=== PATIENT | male | born 1945 | race Caucasian/White ===

== ENCOUNTER 2020-01-17 11:25 | Emergency (ER) | payer OTHER, SELFPAY ==
[2020-01-17] VITALS (7 sets, daily range): BP systolic 112–151; BP diastolic 67–84; PULSE 70–77; RESP 16–18; TEMP 36.8; O2SAT 95–96; BMI 22.8
--- NOTE | 2020-01-17 11:28 | ED_ITS ---
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 ^ days later the pt started having night sweats and feeling like he has a high fever at night. Slight cough only wh en he takes s deep breath. Today he had left chest pain and it lasted 20 min and it scared him so he called 911. In ambulance his o2 was at 94% MD elicited complaint: shortness of breath, cough and chest pain Onset (ago): day(s) Context: recent illness Timing: constant and progressively worsening Severity: moderate Exacerbating factors: deep breaths Relieving factors: nothing Associated symptoms: Reports chest pain, cough, diaphoresis and fever(s); Deny abdominal pain, nausea or vomiting Treatment prior to arrival: oxygen Review of Systems General: Reports: 10 or more systems reviewed and unremarkable except in HPI and below Const: Reports: fever and diaphoresis ENMT: Denies: throat pain Card: Reports: chest pain Resp: Reports: shortness of breath and productive cough; Denies: wheezing GI: Denies: abdominal pain, nausea, vomiting, diarrhea, constipation or blood in stool Musc: Denies: back pain or extremity swelling Skin/Breast: Denies: rash Neuro: Denies: headache, numbness in extremities or weakness in extremities Endo: Reports: excessive sweating (at night) [facility] ED PFSH: Medical History (Updated 01/17/20 @ 17:07 by Aida Marie DO) Dyslipidemia Hypertension Hypothyroidism Social History Smoking and tobacco status: former smoker Physical Exam Const: COMMON NORMALS: no apparent distress and oriented x3 GENERAL APPEARANCE: cooperative; not in distress HENMT: COMMON NORMALS: normocephalic HEAD & SCALP: normal to inspection and normocephalic MOUTH: oral and palatal mucosa normal and lip normal THROAT: posterior oropharynx normal and tonsils normal Neck/C-Spine: COMMON NORMALS: full ROM, no lymphadenopathy, supple and no meningeal signs GENERAL: Yes normal visual inspection and Yes trachea midline Chest: COMMONS NORMALS: inspection of chest normal Resp: COMMON NORMALS: normal respiratory effort and clear to auscultation bilaterally EFFORT & INSPECTION: Yes able to speak in complete sentences and No respiratory distress AUSCULTATION: clear to auscultation bilaterally, no rales, no rhonchi and no wheezes Cardio: COMMON NORMALS: regular rate, regular rhythm, S1 normal heart sound, S2 normal heart sound and no murmurs RATE: regular rate RHYTHM: regular rhythm HEART SOUNDS: S1 normal and S2 normal PERIPHERAL PULSES: radial pulses present and dorsalis pedis pulses present GI: COMMON NORMALS: normal to inspection, nondistended, normoactive bowel sounds, soft to palpation and non-tender INSPECTION: Yes normal to inspection AUSCULTATION: Yes normoactive bowel sounds PALPATION: Yes soft, No tender, No guarding and No rigid RECTAL EXAM: Yes deferred : COMMON NORMALS: Yes no CVA tenderness BLADDER/KIDNEY EXAM: Yes no CVA tenderness Back/Pelvis: COMMON NORMALS: no CVA tenderness Extremity: COMMON NORMALS: normal to inspection, full ROM, normal capillary refill, no calf tenderness and no pedal edema Neuro: COMMON NORMALS: oriented x3, CN's II-XII intact bilaterally, moves all extremities and no focal motor deficits MENINGEAL SIGNS: Yes no meningeal signs Skin: COMMON NORMALS: no rashes or lesions noted GENERAL SKIN EXAM: no rashes or lesions noted Course Vital Signs: Vital signs: Vital Signs Temperature 98.2 F 01/17/20 11:26 Pulse Rate 70 01/17/20 18:04 Respiratory Rate 16 01/17/20 18:16 Blood Pressure 134/71 01/17/20 18:04 Pulse Oximetry 96 01/17/20 18:16 MDM - SOB/Dyspnea MDM Narrative: Medical decision making narrative: Pts troponin went from 8 to 47 in 2 hours. Pts heart score is a 5. Dr Gore states since we do not have stress test available this weekend he would like me to wait for a 6 hour troponin, unless cardiology wants him admitted now. Dr Maravilla states to wait for 6 hour trop if it goes up to 56-57 then send him home. Dr Gore is coming to see the pt. He states it is common for it to go up in covid but if it goes up to over 200 then it is more likely cardiac,. 1530: lab reran the 2nd trop and it is actually 7.5 and I have informed Dr Gore and he states he will finish his consult but it is ok to send him home. He will need to self isolate for 12 days and he will need to f/u with outpt stress test. Case management will get him set up with outpt stress, We will give him the info for getting his covid results. He will need to drink plenty of fluids and I will send him home with levaquin for possible bronchitis D dimer is neg I will d/c with Bao's blessing Lab Data: Attestation: I reviewed the patient's lab results. Labs: Lab Results 01/17/20 01/17/20 01/17/20 Range/Units 12:05 12:15 12:15 WBC 4.1 (4.0-10.0) 10^3/ uL RBC 4.80 (4.1-5.3) 10^6/u L Hgb 13.3 (11.7-16.6) g/dL Hct 40.4 L (42.0-52.0) % MCV 84.2 (80-94) fL MCH 27.7 L (28.0-34.0) pg MCHC 32.9 (30.0-36.0) g/dL RDW 13.5 (12.1-15.1) % Plt Count 135 (130-400) 10^3/c mm MPV 12.3 H (7.4-10.4) fL Neut % (Auto) 66.3 % Lymph % (Auto) 16.3 % [place] % (Auto) 16.0 % Eos % (Auto) 0.2 % Baso % (Auto) 0.2 % Neut # (Auto) 2.7 (1.8-7.7) 10^3/u L Lymph # (Auto) 0.7 L (0.8-4.8) 10^3/u L [place] # (Auto) 0.7 (0.2-0.9) 10^3/u L Eos # (Auto) 0.0 (0.0-0.8) 10^3/u L Baso # (Auto) 0.0 (0.0-0.1) 10^3/u L Nucleated RBC % (a uto) 0 % Nucleated RBCs # 0.0 /100WBC D-Dimer (0-0.59) ug/mIFE U Specimen Type Arterial ABG pH 7.46 H (7.35-7.45) ABG pCO2 29.3 L (35-45) mmHg ABG pO2 84.1 (80.0-100.0) mmH g ABG HCO3 20.8 L (22-26) mmol/L ABG O2 Saturation 96.9 ABG Base Excess -1.9 (-2.0-2.0) mmol/ L John Test Pos A-a O2 Gradient 27.5 H (5-10) mmHg Hematocrit 42.7 (42-52) % Hgb O2 Saturation 95.9 (95-100) % Carboxyhemoglobin 0.1 L (0.4-20.1) %THgb Methemoglobin 0.9 (0.4-1.5) % Total Hemoglobin 13.9 L (14-18) g/dL Sodium 136.0 135 L (131-143) mmol/L Potassium 3.3 L 3.3 L (3.5-5.0) mmol/L Glucose 91.0 92 (70-115) mg/dL Ionized Calcium 1.1 (1.1-1.4) mmol/L Chief Passenger Ship Steward/Stewardess ID anonymous Chloride 99 (98-107) mmol/L Carbon Dioxide 20 L (22-29) mmol/L Anion Gap 19.3 H (5-19) BUN 12 (8-23) mg/dL Creatinine 1.0 (0.7-1.2) mg/dL Calculated Osmolal ity 276 L (285-295) mOsm/k g Lactate (0.5-2.2) mmol/L Calcium 8.4 L (8.5-10.5) mg/dL Total Bilirubin 0.2 (0.15-1.2) mg/dL AST 25 (0-40) U/L ALT 19 (0-41) U/L Alkaline Phosphata se 57 (40-130) IU/L Lactate Dehydrogen ase (135-225) U/L Troponin T Baselin e (0-15) ng/mL Troponin T 120 Min mentasta (0-15) ng/mL Delta Troponin T (0-10) ABS# Total Protein 6.7 (6.6-8.7) g/dL Albumin 3.7 (3.5-5.2) g/dL Globulin 3.0 (1.3-4.6) g/dL Triglycerides (0-150) mg/dL Cholesterol (0-200) mg/dL LDL Cholesterol, C alc (50-129) mg/dL Total VLDL Cholest natividad (0-30) mg/dL HDL Cholesterol (60-100) mg/dL Cholesterol/HDL Ra smita (1.0-5.00) mg/dL Influenza Type A A g (Negative) Influenza Type B A g (Negative) 01/17/20 01/17/20 01/17/20 Range/Units 12:15 12:15 12:15 WBC (4.0-10.0) 10^3/ uL RBC (4.1-5.3) 10^6/u L Hgb (11.7-16.6) g/dL Hct (42.0-52.0) % MCV (80-94) fL MCH (28.0-34.0) pg MCHC (30.0-36.0) g/dL RDW (12.1-15.1) % Plt Count (130-400) 10^3/c mm MPV (7.4-10.4) fL Neut % (Auto) % Lymph % (Auto) % [place] % (Auto) % Eos % (Auto) % Baso % (Auto) % Neut # (Auto) (1.8-7.7) 10^3/u L Lymph # (Auto) (0.8-4.8) 10^3/u L [place] # (Auto) (0.2-0.9) 10^3/u L Eos # (Auto) (0.0-0.8) 10^3/u L Baso # (Auto) (0.0-0.1) 10^3/u L Nucleated RBC % (a uto) % Nucleated RBCs # /100WBC D-Dimer (0-0.59) ug/mIFE U Specimen Type ABG pH (7.35-7.45) ABG pCO2 (35-45) mmHg ABG pO2 (80.0-100.0) mmH g ABG HCO3 (22-26) mmol/L ABG O2 Saturation ABG Base Excess (-2.0-2.0) mmol/ L John Test A-a O2 Gradient (5-10) mmHg Hematocrit (42-52) % Hgb O2 Saturation (95-100) % Carboxyhemoglobin (0.4-20.1) %THgb Methemoglobin (0.4-1.5) % Total Hemoglobin (14-18) g/dL Sodium (131-143) mmol/L Potassium (3.5-5.0) mmol/L Glucose (70-115) mg/dL Ionized Calcium (1.1-1.4) mmol/L Chief Passenger Ship Steward/Stewardess ID Chloride (98-107) mmol/L Carbon Dioxide (22-29) mmol/L Anion Gap (5-19) BUN (8-23) mg/dL Creatinine (0.7-1.2) mg/dL Calculated Osmolal ity (285-295) mOsm/k g Lactate 0.7 (0.5-2.2) mmol/L Calcium (8.5-10.5) mg/dL Total Bilirubin (0.15-1.2) mg/dL AST (0-40) U/L ALT (0-41) U/L Alkaline Phosphata se (40-130) IU/L Lactate Dehydrogen ase (135-225) U/L Troponin T Baselin e 8 (0-15) ng/mL Troponin T 120 Min mentasta (0-15) ng/mL Delta Troponin T (0-10) ABS# Total Protein (6.6-8.7) g/dL Albumin (3.5-5.2) g/dL Globulin (1.3-4.6) g/dL Triglycerides (0-150) mg/dL Cholesterol (0-200) mg/dL LDL Cholesterol, C alc (50-129) mg/dL Total VLDL Cholest natividad (0-30) mg/dL HDL Cholesterol (60-100) mg/dL Cholesterol/HDL Ra smita (1.0-5.00) mg/dL Influenza Type A A g Negative (Negative) Influenza Type B A g Negative (Negative) 01/17/20 01/17/20 01/17/20 Range/Units 12:15 12:15 14:22 WBC (4.0-10.0) 10^3/ uL RBC (4.1-5.3) 10^6/u L Hgb (11.7-16.6) g/dL Hct (42.0-52.0) % MCV (80-94) fL MCH (28.0-34.0) pg MCHC (30.0-36.0) g/dL RDW (12.1-15.1) % Plt Count (130-400) 10^3/c mm MPV (7.4-10.4) fL Neut % (Auto) % Lymph % (Auto) % [place] % (Auto) % Eos % (Auto) % Baso % (Auto) % Neut # (Auto) (1.8-7.7) 10^3/u L Lymph # (Auto) (0.8-4.8) 10^3/u L [place] # (Auto) (0.2-0.9) 10^3/u L Eos # (Auto) (0.0-0.8) 10^3/u L Baso # (Auto) (0.0-0.1) 10^3/u L Nucleated RBC % (a uto) % Nucleated RBCs # /100WBC D-Dimer 0.29 (0-0.59) ug/mIFE U Specimen Type ABG pH (7.35-7.45) ABG pCO2 (35-45) mmHg ABG pO2 (80.0-100.0) mmH g ABG HCO3 (22-26) mmol/L ABG O2 Saturation ABG Base Excess (-2.0-2.0) mmol/ L John Test A-a O2 Gradient (5-10) mmHg Hematocrit (42-52) % Hgb O2 Saturation (95-100) % Carboxyhemoglobin (0.4-20.1) %THgb Methemoglobin (0.4-1.5) % Total Hemoglobin (14-18) g/dL Sodium (131-143) mmol/L Potassium (3.5-5.0) mmol/L Glucose (70-115) mg/dL Ionized Calcium (1.1-1.4) mmol/L Chief Passenger Ship Steward/Stewardess ID Chloride (98-107) mmol/L Carbon Dioxide (22-29) mmol/L Anion Gap (5-19) BUN (8-23) mg/dL Creatinine (0.7-1.2) mg/dL Calculated Osmolal ity (285-295) mOsm/k g Lactate (0.5-2.2) mmol/L Calcium (8.5-10.5) mg/dL Total Bilirubin (0.15-1.2) mg/dL AST (0-40) U/L ALT (0-41) U/L Alkaline Phosphata se (40-130) IU/L Lactate Dehydrogen ase 223 (135-225) U/L Troponin T Baselin e (0-15) ng/mL Troponin T 120 Min mentasta 7.5 (0-15) ng/mL Delta Troponin T -0.5 L (0-10) ABS# Total Protein (6.6-8.7) g/dL Albumin (3.5-5.2) g/dL Globulin (1.3-4.6) g/dL Triglycerides 61 (0-150) mg/dL Cholesterol 137 (0-200) mg/dL LDL Cholesterol, C alc 89 (50-129) mg/dL Total VLDL Cholest natividad 12 (0-30) mg/dL HDL Cholesterol 36 L (60-100) mg/dL Cholesterol/HDL Ra smita 3.81 (1.0-5.00) mg/dL Influenza Type A A g (Negative) Influenza Type B A g (Negative) Imaging Data^: CXR: Radiologist's impression: Signed Patient: Chris Elizabeth #: [id number] : 5Acct#:[id number] Age/Sex: 74 / MADM Date: 01/17/20 Loc: [facility]/Bed: Attending Dr: Ordering Provider/Ordering MD: Aida Marie DO Date of Service: 01/17/20 Procedure(s): XR chest 1V portable [id number] Accession Number(s): [id number] Report Number: [id number] WS: [id number] PORTABLE CHEST HISTORY: pneumonia COMPARISON: None available. Lungs are clear and well expanded. No pleural effusion or pneumothorax. Cardiac size: Normal. Mediastinum/Aorta: Normal mediastinum. No osseous abnormality seen. XR/XR chest 1V portable [id number] IMPRESSION: Unremarkable portable chest. Dictated By:Lynette Askew DO Signed By:Lynette Askew DOSigned Date/Time:01/17/20 1200 DD/ 1155 EKG Data^: EKG 1: Attestation: I personally reviewed and interpreted this EKG as follows: EKG interpretation time: 11:42 Interpretation: normal sinus rhythm, rate 71, LAD Discharge Plan Discharge Patient Disposition: Home, Self-Care Clinical Impression: Chest pain Qualifiers: Chest pain type: precordial pain Qualified Code(s): R07.2 - Precordial pain Condition: Stable Prescriptions: New Levaquin 750 mg tablet 750 mg PO DAILY 7 Days RF: 0 No Action levothyroxine [Synthroid] 75 mcg tablet 75 mcg PO DAILY RF: 0 simvastatin 20 mg tablet 20 mg PO DAILY RF: 0 aspirin 1 tab PO DAILY RF: 0 Discharge Orders: Discharge Order (Routine); Ordered 01/17/20 Ordered By: Aida Marie Discharge Diet: Advance as tolerated Discharge Activity: Increase activity as tolerated Patient Instructions: Chest Pain (ED), Acute Bronchitis (ED) Activity Restrictions/Additional Instructions: case management will get you set up with pcp and an outpt stress test, f/u with pcp in 2 days, return if worse, any problem, any change, Nurse will give you the info for how to get your covid-19 results. you must quarantine yourself for 12 days unless your test comes back negative. Wear a mask in the presence of others. Discharge Date/Time: 01/17/20 18:26 Coding Level of Care Code ED Case Finishing Machine Adjuster for Chg Fwd Exam Comprehensive
--- NOTE | 2020-01-17 11:39 | XR_ITS ---
WS: [id number] PORTABLE CHEST HISTORY: pneumonia COMPARISON: None available. Lungs are clear and well expanded. No pleural effusion or pneumothorax. Cardiac size: Normal. Mediastinum/Aorta: Normal mediastinum. No osseous abnormality seen. XR/XR chest 1V portable [id number] IMPRESSION: Unremarkable portable chest.
--- NOTE | 2020-01-17 11:40 | ECG_ITS ---
Measurements Intervals [place] Rate: 76 P: 32 [place]: 163 QRS: -43 QRSD: 118 T: 32 QT: 376 QTc: 423 SINUS RHYTHM MARKED LEFT AXIS DEVIATION [QRS AXIS < -30] MODERATE INTRAVENTRICULAR CONDUCTION DELAY [110+ ms QRS DURATION] No previous ECG available for comparison Electronically Signed On 01-17-2020 15:28:27 CDT by Josselin Beltran M.D. [id number]
[2020-01-17] MEDS: aspirin 81 mg Chew Tablet 324 MG PO (11:57)
[2020-01-17] MEDS: sodium chloride 0.9% 500 ML 999 ML IV (11:58)
[2020-01-17] MEDS: albuterol 8 gm MDI 2 PUFF INHALATION (12:12)
[2020-01-17 12:16] LABS: ABG PCO2 29.3 mmHg (35-45); ABG PH Result 7.46 (7.35-7.45); Alveolar-Arterial Oxygen Gradi 27.5 mmHg (5-10); Arterial Blood Gas Hematocrit 42.7 % (42-52); Base Excess ABG -1.9 mmol/L (-2.0-2.0); Blood Gas Allen Test Pos; Blood Gas Sample Type Arterial; Carboxyhemoglobin 0.1 %THgb (0.4-20.1); HCO3 ABG 20.8 mmol/L (22-26); HGB O2 Sat 95.9 % (95-100); Ionized Calcium Level - ABG 1.1 mmol/L (1.1-1.4); Methemoglobin 0.9 % (0.4-1.5); Oxygen Saturation ABG 96.9; PO2 ABG 84.1 mmHg (80.0-100.0); Potassium Level - ABG 3.3 mmol/L (3.5-5.0); Total Hemoglobin 13.9 g/dL (14-18)
--- NOTE | 2020-01-17 12:20 | PC.NURSE ---
RT at bedside to give pt albuterol inhaler and draw ABG. Blood drawn at bedside by nurse as well. Pt refused Nitro, dr and primary nurse notified. Pt was swabbed for COVID and flu by this nurse. Blood and swabs labeled and sent to lab.
[2020-01-17 12:51] LABS: Basophils % 0.2 %; Eosinophils % 0.2 %; Hematocrit 40.4 % (42.0-52.0); Hemoglobin 13.3 g/dL (11.7-16.6); Lymphocytes # 0.7 10^3/uL (0.8-4.8); Lymphocytes % 16.3 %; Mean Corpuscular HGB Conc 32.9 g/dL (30.0-36.0); Mean Corpuscular Hemoglobin 27.7 pg (28.0-34.0); Mean Corpuscular Volume 84.2 fL (80-94); Mean Platelet Volume 12.3 fL (7.4-10.4); Monocytes # 0.7 10^3/uL (0.2-0.9); Neutrophils # 2.7 10^3/uL (1.8-7.7); Neutrophils % 66.3 %; Nucleated Red Blood Cells % 0 %; Platelet Count 135 10^3/cmm (130-400); Red Cell Distribution Width 13.5 % (12.1-15.1); White Blood Count 4.1 10^3/uL (4.0-10.0)
[2020-01-17 13:11] LABS: Influenza A by IFA Negative (Negative); Influenza B by IFA Negative (Negative)
[2020-01-17 13:13] LABS: Lactate (Lactic Acid level) 0.7 mmol/L (0.5-2.2)
[2020-01-17 13:14] LABS: Alanine Aminotransferase 19 U/L (0-41); Albumin Level 3.7 g/dL (3.5-5.2); Alkaline Phosphatase 57 IU/L (40-130); Anion Gap 19.3 (5-19); Aspartate Amino Transferase 25 U/L (0-40); Blood Urea Nitrogen 12 mg/dL (8-23); Calcium 8.4 mg/dL (8.5-10.5); Carbon Dioxide 20 mmol/L (22-29); Chloride 99 mmol/L (98-107); Glucose 92 mg/dL (65-115); Osmolality Calculated 276 mOsm/kg (285-295); Potassium 3.3 mmol/L (3.5-5.1); Sodium 135 mmol/L (136-145); Total Bilirubin 0.2 mg/dL (0.15-1.2); Total Protein 6.7 g/dL (6.6-8.7)
[2020-01-17 13:17] LABS: Troponin(5th) Baseline 8 ng/mL (0-15)
[2020-01-17] MEDS: enoxaparin 80 mg/0.8 mL Syringe 70 MG SUBCUT (15:03)
[2020-01-17] MEDS: acetaminophen 500 mg Tablet 1000 MG PO (15:17)
--- NOTE | 2020-01-17 15:33 | P.CONIM_ITS ---
Providers/Reason For Consult Consulting Physican/Specialty*: Dr. Stahl/internal medicine/hospitalist Reason for Consult*: Atypical chest pain Requesting Physjajaan: Dr. 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 Patient had been having fevers, difficulty in breathing for last 5 days which has been progressively stable. Today morning when patient woke up he had central chest pain for 130 minutes which scared him and he called EMS and presented to the ER. Patient has still not had any further chest pain since then. On my examination patient was complaining of left-sided headache which is getting better after Tylenol. He denies of any nausea, vomiting, dysuria, abdominal pain, diarrhea, epistaxis, weakness in any of his arms, hemoptysis. Review of Systems Const: Denies: fever, chills, body aches, change in appetite, malaise, night sweats, diaphoresis, change in sleep pattern, daytime sleepiness or snoring Eyes: Denies: change in vision, blurry vision, photophobia, eye discomfort or eye discharge ENMT: Denies: throat pain, enlarged tonsils, hoarseness, mouth pain, oral sores/lesions, dry mouth, tinnitus, nasal congestion or post nasal drip Card: Denies: chest pain, palpitations, irregular heart rhythm, edema, swelling of feet/ankles, lightheadedness, syncope, pre-syncope, shortness of breath on exertion, shortness of breath when lying down, leg pain with exertion or bluish discoloration of hands/feet Resp: Denies: shortness of breath, productive cough, non-productive cough, wheezing, stridor, pain on inspiration, change in phlegm color, coughing up blood or chest congestion GI: Denies: abdominal pain, nausea, vomiting, vomiting blood, coffee grounds in vomit, difficulty swallowing, heartburn/indigestion, diarrhea, constipation, bloating, cramping, change in bowel habits, painful bowel movements, blood in stool or black tarry stool : Denies: flank pain, difficulty urinating, painful urination, urinary frequency, urinary urgency, urinary hesitancy, urinary dribbling, difficulty starting urination, change in urine stream, nighttime urination or blood in ur ine Musc: Denies: neck pain, back pain, extremity pain, joint pain, joint swelling, redness, joint stiffness or limited range of motion Neuro: Denies: headache, numbness in extremities, weakness in extremities, changes in sensation, lack of coordination, difficulty walking, frequent falls, dizziness, vertigo, confusion, slurred speech, difficulty communicating thoughts or seizure-like activity Psych: Denies: anxiety, depression, mood swings, panic attacks, hopelessness or irritability Endo: Denies: excessive urination, excessive thirst, tired all the time, cold intolerance, excessive sweating, flushing or heat intolerance Neil/Lymph: Denies: easy bruising or easy bleeding All/Imm: Denies: tongue swelling, facial swelling or acute wheezing Meds/Allergies Home Medications and Allergies Home Medications Medication Instructions Recorded Confirmed Last Taken Type aspirin 1 tab PO DAILY 01/17/20 01/17/20 01/16/20 History levofloxacin [Levaquin] 750 mg PO DAILY 7 Days tab 01/17/20 Unknown Rx levothyroxine [Synthroid] 75 mcg PO DAILY 01/17/20 01/17/20 01/16/20 History simvastatin 20 mg PO DAILY 01/17/20 01/17/20 01/16/20 History Allergies Allergy/AdvReac Type Severity Reaction Status Date / Time No Known Allergies Allergy Verified 01/17/20 11:35 Current Medications Current Medications Generic Name Dose Route Start Last Admin Trade Name Freq PRN Reason Stop Dose Admin Albuterol Sulfate 2 puff 01/17/20 12:00 01/17/20 12:12 Ventolin INHALATION 2 puff Q4H.RESPIRATORY BEAR Administration PFSH Acute PFSH: Medical History (Updated 01/17/20 @ 17:07 by Aida Marie DO) Dyslipidemia Hypertension Hypothyroidism Social History Smoking and tobacco status: former smoker Vitals/I&O/Wt Last Vital Signs Temp 98.2 F 01/17/20 11:26 Pulse 75 01/17/20 15:15 Resp 16 01/17/20 15:15 BP 128/67 01/17/20 15:15 Pulse Ox 96 01/17/20 15:15 Weight last 48 hrs Weight 68.039 kg Data Micro: Micro: Microbiology 01/17/20 14:22 Blood Culture - Pr eliminary Blood SPECIMEN [facility] 01/17/20 12:15 Blood Culture - Pr eliminary Blood SPECIMEN [facility] A&P Assessment and plan (1) Chest pain: Status: Acute (2) COVID-19 ruled out: Status: Acute (3) Hypothyroidism: Status: Acute (4) Hypertension: Status: Acute (5) Dyslipidemia: Status: Acute Additional A&P Information Chest pain: Most likely atypical. Troponins at start was 7 and the repeat at 2 hours was reported to be 47 corrected to be 7 later with 0 delta. Cannot rule out PE. Check d-dimer. If d-dimer elevated will go for CTA chest. Patient already got 325 mg of aspirin. We will discharge patient on aspirin, statins. Check HbA1c, lipid panels. COVID-19 rule out: Cannot rule out COVID-19 given the fact that patient was in close proximity to of positive patient. Labs already sent. We will continue isolation. Patient is saturating fine right now on room air. If patient continues to saturate more than 92% on room air can plan to discharge him. Patient educated regarding need of patient to remain in self-isolation even if discharged. No consolidation on chest x-ray. Thank you for consult. Will review again once d-dimer, [facility] are back. Consult Attestations Medical Necessity Statement: As per the primary team. Time Spent in Patient Care: Greater than 35 minutes (>than 50% of time spent in counselling and/or direct pt care on unit) . Coding Level of Care Code Acute Theoretical Physics Teacher for Alanna Savage Diagnoses Chest pain R07.9 COVID-19 ruled out Z03.818 Hypothyroidism E03.9 Hypertension I10 Dyslipidemia E78.5
[2020-01-17 15:40] LABS: Troponin 5 2HR 7.5 ng/mL (0-15); Troponin 5 2HR Delta -0.5 ABS# (0-10)
[2020-01-17 16:25] LABS: Chol HDL Ratio 3.81 mg/dL (1.0-5.00); Cholesterol 137 mg/dL (0-200); HDL Cholesterol 36 mg/dL (60-100); LDL Cholesterol Calculated 89 mg/dL (50-129); Lactate Dehydrogenase 223 U/L (135-225); Triglycerides 61 mg/dL (0-150); VLDL Cholestrol Calculation 12 mg/dL (0-30)
[2020-01-17 17:01] LABS: D Dimer 0.29 ug/mIFEU (0-0.59)
--- NOTE | 2020-01-17 17:40 | ECG_ITS ---
Measurements Intervals [place] Rate: 77 P: 58 [place]: 163 QRS: -40 QRSD: 106 T: 65 QT: 359 QTc: 408 SINUS RHYTHM LEFT AXIS DEVIATION [QRS AXIS < -30] Compared to ECG 01/17/2020 14:17:19 Intraventricular conduction delay no longer present Electronically Signed On 01-19-2020 17:06:40 CDT by Ynes Maravilla M.D. [id number]
[2020-01-19 10:13] LABS: Blood Gas Operator Identificat ED
--- NOTE | 2020-01-20 10:15 | DCPLANNER ---
human services case manager had message to schedule a follow up appointment for patient for tele health with Dr. Martinez, at [facility]. human services case manager called [facility], spoke with Natalie, a followup appointment will be scheduled for patient, and clinic will call patient with appointment information. human services case manager then noticed that patient was admitted to hospital, binder caser called [facility], spoke with Natalie and informed her that patient had been admitted to the hospital. human services case manager was also asked to schedule an out patient stress test for patient. human services case manager e mailed Dr. Amberly Kern, to ask if an out patient stress was still needed and if so how far out that it would need to be scheduled for patient.
== END 2020-01-17 18:26 | disposition home or self-care (01) ==
PROVIDERS: Student in an Organized Health Care Education/Training Program; Emergency Provider Emergency Medicine
DX: R07.2 Precordial pain (principal); U07.1 COVID-19; J98.8 Other specified respiratory disorders; I10 Essential (primary) hypertension; E78.5 Hyperlipidemia, unspecified; Z87.891 Personal history of nicotine dependence; E03.9 Hypothyroidism, unspecified
CPT/HCPCS: 12345; 36415; 36600; 71045; 80051; 80053; 80061; 82810; 83605; 83615; 83986; 84484; 85025; 85378; 87040; 87635; 87804; 93005; 94640; 96360; 96372; 99283; 99284; J1650; J7040

== ENCOUNTER 2020-01-18 20:33 | Inpatient (IN) | payer MEDICARE, SELFPAY ==
[2020-01-18] VITALS (8 sets, daily range): BP systolic 135; BP diastolic 65; PULSE 67–78; RESP 13–31; TEMP 36.7; O2SAT 94–99; BMI 22.8
--- NOTE | 2020-01-18 21:05 | W.ED.SOB ---
HPI - SOB/Dyspnea General: Chief Complaint: Shortness of Breath/Dyspnea Stated Complaint: SOB, COVID + Time Seen by Provider: 01/18/20 20:50 History of Present Illness: HPI Narrative: 74-year-old male, who tested positive for COVID-19 here yesterday, arrives again by ambulance with shortness of breath. He complained of shortness of breath at home along with bilateral thoracolumbar back pain, which is improved with oxygen. His oxygen saturations on EMS arrival were 90 to 92% in mild respiratory distress. On nasal cannula, his sat is 97%. He is normotensive blood pressure 135/65 he states he has not had fever that he knows of. No chills. A mild cough that just started today. No sputum production. No prior history of heart or lung disease. MD elicited complaint: shortness of breath Onset (ago): day(s) Context: recent illness Timing: constant Severity: moderate Exacerbating factors: exertion and movement Relieving factors: oxygen Associated symptoms: Reports cough; Deny chest congestion, chest pain, dizziness, fever(s) or nausea Review of Systems Const: Denies: fever Eyes: Denies: change in vision or blurry vision ENMT: Denies: painful swallowing or nose bleeds Card: Denies: chest pain Resp: Denies: chest congestion GI: Denies: nausea : Denies: difficulty urinating, urinary urgency or blood in urine Musc: Reports: back pain; Denies: neck pain, redness or joint warmth Skin/Breast: Denies: rash, itching or redness Neuro: Denies: dizziness Psych: Denies: anxiety PFSH ED PFSH: Medical History (Updated 01/17/20 @ 17:07 by Aida Marie DO) Dyslipidemia Hypertension Hypothyroidism Social History Smoking and tobacco status: former smoker Physical Exam Const: GENERAL APPEARANCE: well developed ORIENTATION/CONSCIOUSNESS: Yes oriented to person, Yes oriented to place and Yes oriented to time HENMT: COMMON NORMALS: normocephalic and external nose normal HEAD & SCALP: normocephalic FACE & SINUS: normal facial exam NOSE: external nose normal and no nasal discharge Eye: COMMON NORMALS: PERRL, EOMs intact bilaterally and conjunctivae normal EYELID: eyelids normal CONJUNCTIVA: Yes conjunctivae normal PUPIL: Yes PERRL Neck/C-Spine: GENERAL: No tracheal deviation Chest: COMMONS NORMALS: inspection of chest normal CHEST: No tenderness Resp: COMMON NORMALS: clear to auscultation bilaterally EFFORT & INSPECTION: Yes tachypneic, No respiratory distress, No retractions, No uses accessory muscles and No tracheal deviation AUSCULTATION: clear to auscultation bilaterally, no rhonchi, no wheezes and lung sounds not diminished Cardio: COMMON NORMALS: regular rate and regular rhythm RATE: regular rate RHYTHM: regular rhythm HEART SOUNDS: no murmurs PERIPHERAL PULSES: radial pulses present GI: INSPECTION: No abdominal distension AUSCULTATION: No hyperactive bowel sounds and No hypoactive bowel sounds PALPATION: No guarding and No rigid PERCUSSION: no dullness to percussion and no tympanic to percussion Neuro: SENSORIUM/ORIENTATION: Yes oriented to person, Yes oriented to place and Yes oriented to time Psych: COMMON NORMALS: mental status grossly normal Skin: COMMON NORMALS: no rashes or lesions noted GENERAL SKIN EXAM: no rashes or lesions noted Course Consultations: Consultation #1: Anjel Time: 22:41 Vital Signs: Vital signs: Vital Signs Temperature 98.5 F 01/19/20 00:02 Pulse Rate 67 01/19/20 04:00 Respiratory Rate 12 01/19/20 04:00 Blood Pressure 119/62 01/19/20 04:00 Pulse Oximetry 97 01/19/20 04:00 MDM - SOB/Dyspnea MDM Narrative: Medical decision making narrative: 74-year-old male with known COVID-19. He presents with shortness of breath, mild respiratory distress. He is oxygen dependent, oxygen saturations have been 94 to 97% on a couple liters. He is normotensive. He is non-tachycardic. He is borderline leukopenic, with borderline lymphopenia. His CRP is elevated, his pro calcitonin is not. His chest x-ray shows developing bilateral pneumonitis type infiltrates. He will go to the viral ICU. Lab Data: Labs: Lab Results 01/18/20 01/18/20 01/18/20 Range/Units 20:40 20:40 20:40 WBC 4.1 (4.0-10.0) 10^3/ uL RBC 5.05 (4.1-5.3) 10^6/u L Hgb 14.0 (11.7-16.6) g/dL Hct 42.9 (42.0-52.0) % MCV 85.0 (80-94) fL MCH 27.7 L (28.0-34.0) pg MCHC 32.6 (30.0-36.0) g/dL RDW 13.7 (12.1-15.1) % Plt Count 175 (130-400) 10^3/c mm MPV 11.6 H (7.4-10.4) fL Neut % (Auto) 63.8 % Lymph % (Auto) 21.8 % [place] % (Auto) 12.7 % Eos % (Auto) 0.0 % Baso % (Auto) 0.2 % Neut # (Auto) 2.6 (1.8-7.7) 10^3/u L Lymph # (Auto) 0.9 (0.8-4.8) 10^3/u L [place] # (Auto) 0.5 (0.2-0.9) 10^3/u L Eos # (Auto) 0.0 (0.0-0.8) 10^3/u L Baso # (Auto) 0.0 (0.0-0.1) 10^3/u L Nucleated RBC % (a uto) 0 % Nucleated RBCs # 0.0 /100WBC D-Dimer (0-0.59) ug/mIFE U Specimen Type Sample Site ABG pH (7.35-7.45) ABG pCO2 (35-45) mmHg ABG pO2 (80.0-100.0) mmH g ABG HCO3 (22-26) mmol/L ABG Base Excess (-2.0-2.0) mmol/ L John Test Hematocrit (42-52) % O2 Delivery Device O2 Liters/Min % Ip Litigation Paralegal ID Sodium 135 L (136-145) mmol/L Potassium 3.4 L (3.5-5.1) mmol/L Chloride 96 L (98-107) mmol/L Carbon Dioxide 22 (22-29) mmol/L Anion Gap 20.4 H (5-19) BUN 11 (8-23) mg/dL Creatinine 1.0 (0.7-1.2) mg/dL Glucose 89 (65-115) mg/dL Calculated Osmolal ity 276 L (285-295) mOsm/k g Lactate 0.7 (0.5-2.2) mmol/L Calcium 9.3 (8.5-10.5) mg/dL Magnesium 2.3 (1.7-2.3) mg/dL Total Bilirubin 0.2 (0.15-1.2) mg/dL AST 27 (0-40) U/L ALT 16 (0-41) U/L Alkaline Phosphata se 62 (40-130) IU/L C-Reactive Protein 55.6 H (0.0-4.9) mg/L Total Protein 7.7 (6.6-8.7) g/dL Albumin 4.0 (3.5-5.2) g/dL Globulin 3.7 (1.3-4.6) g/dL Procalcitonin 0.05 (0-0.5) ng/mL 01/18/20 01/18/20 Range/Units 20:40 21:35 WBC (4.0-10.0) 10^3/ uL RBC (4.1-5.3) 10^6/u L Hgb (11.7-16.6) g/dL Hct (42.0-52.0) % MCV (80-94) fL MCH (28.0-34.0) pg MCHC (30.0-36.0) g/dL RDW (12.1-15.1) % Plt Count (130-400) 10^3/c mm MPV (7.4-10.4) fL Neut % (Auto) % Lymph % (Auto) % [place] % (Auto) % Eos % (Auto) % Baso % (Auto) % Neut # (Auto) (1.8-7.7) 10^3/u L Lymph # (Auto) (0.8-4.8) 10^3/u L [place] # (Auto) (0.2-0.9) 10^3/u L Eos # (Auto) (0.0-0.8) 10^3/u L Baso # (Auto) (0.0-0.1) 10^3/u L Nucleated RBC % (a uto) % Nucleated RBCs # /100WBC D-Dimer 0.35 (0-0.59) ug/mIFE U Specimen Type Arterial Sample Site Radial, right ABG pH 7.46 H (7.35-7.45) ABG pCO2 30.7 L (35-45) mmHg ABG pO2 96.7 (80.0-100.0) mmH g ABG HCO3 21.7 L (22-26) mmol/L ABG Base Excess -1.3 (-2.0-2.0) mmol/ L John Test Pos Hematocrit 41.7 L (42-52) % O2 Delivery Device Nc O2 Liters/Min 2.0 % Ip Litigation Paralegal ID neha Sodium (136-145) mmol/L Potassium (3.5-5.1) mmol/L Chloride (98-107) mmol/L Carbon Dioxide (22-29) mmol/L Anion Gap (5-19) BUN (8-23) mg/dL Creatinine (0.7-1.2) mg/dL Glucose (65-115) mg/dL Calculated Osmolal ity (285-295) mOsm/k g Lactate (0.5-2.2) mmol/L Calcium (8.5-10.5) mg/dL Magnesium (1.7-2.3) mg/dL Total Bilirubin (0.15-1.2) mg/dL AST (0-40) U/L ALT (0-41) U/L Alkaline Phosphata se (40-130) IU/L C-Reactive Protein (0.0-4.9) mg/L Total Protein (6.6-8.7) g/dL Albumin (3.5-5.2) g/dL Globulin (1.3-4.6) g/dL Procalcitonin (0-0.5) ng/mL Discharge Plan Discharge Admit Provider: Ynes Hobbs Discharge Date/Time: 01/18/20 23:39 Coding Level of Care Code ED Manager Integrated for g Fwd Exam Comprehensive
--- NOTE | 2020-01-18 21:16 | XRR_ITS ---
PROCEDURE INFORMATION: Exam: XR Chest, 1 View Exam date and time: 01/18/2020 9:54 PM Age: 74 years old Clinical indication: Shortness of breath; Patient HX: +covid w SOB and lbp TECHNIQUE: Imaging protocol: XR of the chest Views: 1 view. COMPARISON: CR XR chest 1V portable [id number] 01/17/2020 11:43 AM FINDINGS: Lungs: Mild senile fibrosis. COPD/chronic bronchitis. Pleural space: Unremarkable. No pleural effusion. No pneumothorax. Heart/Mediastinum: Unremarkable. No cardiomegaly. Bones/joints: Unremarkable. XR/XR chest 1V portable [id number] IMPRESSION: Nonacute.
[2020-01-18] MEDS: morphine 4 mg/mL SDV 1 mL IVP (21:26)
[2020-01-18] MEDS: ondansetron 2 mg/ML SDV 2 mL 4 MG IVP (21:26)
[2020-01-18 21:28] LABS: Basophils % 0.2 %; Hematocrit 42.9 % (42.0-52.0); Lymphocytes # 0.9 10^3/uL (0.8-4.8); Lymphocytes % 21.8 %; Mean Corpuscular HGB Conc 32.6 g/dL (30.0-36.0); Mean Corpuscular Hemoglobin 27.7 pg (28.0-34.0); Mean Platelet Volume 11.6 fL (7.4-10.4); Monocytes # 0.5 10^3/uL (0.2-0.9); Monocytes % 12.7 %; Neutrophils # 2.6 10^3/uL (1.8-7.7); Neutrophils % 63.8 %; Nucleated Red Blood Cells % 0 %; Platelet Count 175 10^3/cmm (130-400); Red Blood Count 5.05 10^6/uL (4.1-5.3); Red Cell Distribution Width 13.7 % (12.1-15.1); White Blood Count 4.1 10^3/uL (4.0-10.0)
[2020-01-18] MEDS: sodium chloride 0.9% 1,000 ML 100 ML IV (21:28)
[2020-01-18 21:36] LABS: Lactate (Lactic Acid level) 0.7 mmol/L (0.5-2.2)
[2020-01-18 21:46] LABS: Procalcitonin 0.05 ng/mL (0-0.5)
[2020-01-18 21:52] LABS: ABG PCO2 30.7 mmHg (35-45); ABG PH Result 7.46 (7.35-7.45); Arterial Blood Gas Hematocrit 41.7 % (42-52); Base Excess ABG -1.3 mmol/L (-2.0-2.0); Blood Gas Allen Test Pos; Blood Gas Sample Site Radial, right; Blood Gas Sample Type Arterial; HCO3 ABG 21.7 mmol/L (22-26); Oxygen Device NC; PO2 ABG 96.7 mmHg (80.0-100.0)
[2020-01-18 21:57] LABS: Alanine Aminotransferase 16 U/L (0-41); Alkaline Phosphatase 62 IU/L (40-130); Anion Gap 20.4 (5-19); Aspartate Amino Transferase 27 U/L (0-40); Blood Urea Nitrogen 11 mg/dL (8-23); C Reactive Protein 55.6 mg/L (0.0-4.9); Calcium 9.3 mg/dL (8.5-10.5); Carbon Dioxide 22 mmol/L (22-29); Chloride 96 mmol/L (98-107); Globulin 3.7 g/dL (1.3-4.6); Glucose 89 mg/dL (65-115); Magnesium 2.3 mg/dL (1.7-2.3); Osmolality Calculated 276 mOsm/kg (285-295); Potassium 3.4 mmol/L (3.5-5.1); Sodium 135 mmol/L (136-145); Total Bilirubin 0.2 mg/dL (0.15-1.2); Total Protein 7.7 g/dL (6.6-8.7)
--- NOTE | 2020-01-18 22:02 | PC.NURSE ---
and son updated on pt's status
[2020-01-18 23:38] LABS: Add Urine Microscopic? NO
[2020-01-18 23:45] LABS: Bilirubin Urine Neg (NEGATIVE); Blood Urine Neg (Negative); Glucose Urine UA Norm (Normal); Ketones Urine 2+ (Negative); Leukocyte Esterase Urine Negative (Negative); Nitrate Urine Negative (Negative); Protein Urine Neg (Negative); Urine Appearance Clear (CLEAR); Urine Color Yellow (Yellow); Urobilinogen Urine Norm (Negative); pH Urine 5 (5-7)
[2020-01-19] VITALS (18 sets, daily range): BP systolic 90–135; BP diastolic 40–71; PULSE 62–83; RESP 12–21; TEMP 36.6–38.6; O2SAT 86–97
[2020-01-19 00:29] LABS: D Dimer 0.35 ug/mIFEU (0-0.59)
[2020-01-19] MEDS: acetaminophen 325 mg Tablet 650 MG PO ×2 (04:00→20:17)
[2020-01-19 04:12] LABS: Basophils % 0.2 %; Eosinophils % 0.2 %; Hematocrit 39.8 % (42.0-52.0); Hemoglobin 12.7 g/dL (11.7-16.6); Lymphocytes # 0.8 10^3/uL (0.8-4.8); Lymphocytes % 16.5 %; Mean Corpuscular HGB Conc 31.9 g/dL (30.0-36.0); Mean Corpuscular Hemoglobin 27.3 pg (28.0-34.0); Mean Corpuscular Volume 85.6 fL (80-94); Mean Platelet Volume 10.9 fL (7.4-10.4); Monocytes # 0.5 10^3/uL (0.2-0.9); Monocytes % 10.2 %; Neutrophils # 3.5 10^3/uL (1.8-7.7); Neutrophils % 71.9 %; Nucleated Red Blood Cells % 0 %; Platelet Count 153 10^3/cmm (130-400); Red Blood Count 4.65 10^6/uL (4.1-5.3); Red Cell Distribution Width 13.7 % (12.1-15.1); White Blood Count 4.8 10^3/uL (4.0-10.0)
[2020-01-19 04:27] LABS: Alanine Aminotransferase 13 U/L (0-41); Albumin Level 3.5 g/dL (3.5-5.2); Alkaline Phosphatase 56 IU/L (40-130); Anion Gap 17.6 (5-19); Aspartate Amino Transferase 24 U/L (0-40); Blood Urea Nitrogen 11 mg/dL (8-23); Calcium 8.6 mg/dL (8.5-10.5); Carbon Dioxide 23 mmol/L (22-29); Chloride 102 mmol/L (98-107); Globulin 3.2 g/dL (1.3-4.6); Glucose 79 mg/dL (65-115); Lactic Acid level (Lactate) 0.9 mmol/L (0.5-2.2); Osmolality Calculated 283 mOsm/kg (285-295); Potassium 3.6 mmol/L (3.5-5.1); Sodium 139 mmol/L (136-145); Total Bilirubin 0.2 mg/dL (0.15-1.2); Total Protein 6.7 g/dL (6.6-8.7)
[2020-01-19 04:28] LABS: C Reactive Protein 59.1 mg/L (0.0-4.9)
[2020-01-19] MEDS: sodium chloride 0.9% 1,000 ML 75 ML IV (07:50)
[2020-01-19] MEDS: enoxaparin 40 mg/0.4 mL Syringe SUBCUT (07:50)
[2020-01-19] MEDS: levothyroxine 150 mcg Tablet 75 MCG PO (07:51)
[2020-01-19 09:14] LABS: Troponin T (5th) Once 9 ng/mL (0-15)
--- NOTE | 2020-01-19 09:17 | P.HP_ITS ---
Providers/Chief Complaint Admitting Physician: Ynes Hobbs MD Chief Complaint: SOB, Positive COVID History of Present Illness Chris Elizabeth is a 74 year old male who was presented to the emergency department twice in the last several days with shortness of breath. He was exposed to his nephew, who had Covid 19 in [place] around 2-1/2 weeks ago. 3 to 4 days later he developed symptoms that included abdominal pain, night sweats , anorexia, subjective fever, cough that was nonproductive. Shortness of breath occurred in the last 5 to 6 days. He has had some chest discomfort with this. He has had a headache. He reports with oxygen, he is not short of breath now. He was having significant myalgias, which are improved. He reports he is feeling better and able to eat today. He denies any vomiting, or diarrhea. He denies any calf or leg pain currently. During his evaluation January 16 in the emergency department his oxygen saturation was not concerning and he was discharged home even though he was a Covid 19 suspect. Swab at that time has now come back positive. In the emergency department last night he was placed on 2 L of oxygen for his dyspnea. Review of Systems General: Reports: 10 or more systems reviewed and unremarkable except in HPI and below Const: Reports: fever, chills, body aches, change in appetite, fatigue, malaise and night sweats Eyes: Denies: blurry vision ENMT: Denies: throat pain Card: Reports: chest pain Resp: Reports: shortness of breath and non-productive cough GI: Reports: nausea; Denies: vomiting : Denies: difficulty urinating Musc: Denies: neck pain Skin/Breast: Denies: rash Neuro: Reports: headache Endo: Denies: excessive urination Neil/Lymph: Denies: easy bruising All/Imm: Denies: hives Medications/Allergies Home Medications Medication Instructions Recorded Confirmed Last Taken Type aspirin 1 tab PO DAILY 01/17/20 01/18/20 01/18/20 History levofloxacin [Levaquin] 750 mg PO DAILY 7 Days tab 01/17/20 Unknown Rx levothyroxine [Synthroid] 75 mcg PO DAILY 01/17/20 01/18/20 01/18/20 History simvastatin 20 mg PO DAILY 05/01/20 05/02/20 05/02/20 History Allergies Allergy/AdvReac Type Severity Reaction Status Date / Time No Known Allergies Allergy Verified 01/17/20 11:35 PFSH Acute PFSH: Medical History (Updated 01/19/20 @ 11:21 by Charles Leger MD) Dyslipidemia Hypertension Hypothyroidism Surgical History (Updated 01/19/20 @ 11:12 by Charles Leger MD) History of carpal tunnel surgery History of shoulder surgery Family History (Updated 01/19/20 @ 11:13 by Charles Leger MD) Mother Cancer Mother had some type of female cancer Social History (Updated 01/19/20 @ 11:13 by Charles Leger MD) Smoking and tobacco status: former smoker Alcohol intake: current Alcohol intake frequency: holidays/special occasions only Substance/Drug Use: never Vitals/I&O/Wt Last Vital Signs Temp 97.9 F 01/19/20 08:00 Pulse 66 01/19/20 08:00 Resp 18 01/19/20 08:00 BP 119/70 01/19/20 08:00 Pulse Ox 96 01/19/20 08:00 01/18/20 01/19/20 01/19/20 22:59 06:59 14:59 Intake Total 800 / 800 Output Total 400 / 400 300 / 300 Balance 400 / 400 -300 / -300 Weight last 48 hrs Weight 68.039 kg Physical Exam Narrative: EXAM NARRATIVE: General exam is a conversant white male, in no apparent distress. He reports he is not short of breath on oxygen and is not having any chest discomfort. HEENT: Pupils equally round. Oropharynx is clear. Mucous membranes are moist. Neck is supple no lymphadenopathy or thyromegaly Cardiovascular regular rate and rhythm without murmur, no S3 or S4 Lungs no wheezing. A few sparse crackles are noted. Excellent breath sounds. Abdomen is soft, positive bowel sounds. No obvious organomegaly was deferred Extremities show no cyanosis clubbing or edema, cap refill brisk, pulses intact Skin no rash Neuro no focal deficits Data : 01/19/20 04:03 01/19/20 04:03 Other data: D-dimer was normal at 0.35. pH 7.46, PCO2 30, PO2 96.7. This was done on 2 L of oxygen. CRP is 59 Ferritin level was not done Urinalysis negative Influenza a and B done earlier were negative. Chest x-ray demonstrated mild fibrotic changes, possible COPD Blood cultures negative to date Troponin not elevated EKG demonstrates sinus rhythm, left axis deviation, QTC of 423,Shoulder surgery mild intraventricular conduction delay, no concerning changes. A&P Assessment and plan (1) COVID-19: At this point appears to have mild disease, that may be improving. Required 2 L of oxygen last night and 1 L today. We will add ferritin to his baseline inflammatory studies Recheck inflammatory levels tomorrow along with lab work. If improving and not requiring oxygen consider discharge Status: Acute (2) Acute respiratory failure with hypoxemia: Currently requiring only 1 L of oxygen. We will try to taper off. If he continues to improve it is possible he could be discharged tomorrow. Status: Acute (3) Chest pain: Troponin negative and previously no concerning delta. D-dimer negative. Status: Acute Qualifiers: Chest pain type: precordial pain Qualified Code(s): R07.2 - Precordial pain Additional A&P Information Hypothyroidism, continue home medication Hyperlipidemia, continue home medication Reduce IV fluids full code Lovenox for DVT prophylaxis Attestations Medical Necessity Statement*: Needs continued hospitalization secondary to positive Covid 19 requiring oxygen, consistent with moraima failure. Will need greater than 2 midnights. Time Spent in Patient Care: Greater than 35 minutes Coding Level of Care Code Acute Manager Transportation for Alanna Savage Diagnoses COVID-19 U07.1 Acute respiratory failure with hypoxemia J96.01 Chest pain R07.2 Chest pain type: precordial pain
--- NOTE | 2020-01-19 10:08 | PC.NURSE ---
patient oxygen titrated O2 down to 1L per nasal cannula. Patient sats 94%. Will continue to monitor.
--- NOTE | 2020-01-19 11:47 | PC.NURSE ---
oxygen patient on room air to ambulate to toilet, denies any shortness of breath. Patient back to bed after having bowel movement. O2 sats on room air at 94%. Left on room air to eat lunch, patient is tolerating well and maintaining at 94%.
[2020-01-19 11:48] LABS: Ferritin 164 ng/mL (30-400); Lactate Dehydrogenase 303 U/L (135-225)
--- NOTE | 2020-01-19 12:51 | PC.NURSE ---
prone positioning Patient positioned self in prone position, oz sat is 93% on room air. Patient is tolerating well and was able to change positions independently with no shortness of breath.
--- NOTE | 2020-01-19 16:29 | PC.NURSE ---
Patient ambulation Patient resting in bed on room air and o2 sat at 91%. This nurse and Dr. Leger at bedside, patient denies any shortness of breath. Patient stood at bedside and ambulated in place for 3 minutes, o2 sats remained 89-90% on room air and he denied any shortness of breath, and respiratory rate 20-22bpm. Patient ambulated around room three laps, and once he sat down, his o2 sats were 90-91%. Continues to deny shortness of breath. Goals of discharge were discussed, patient continues to be nervous to go home and have a decline in status since he has already had to return to the ER once before. Patient now resting in bed, call light within reach.
[2020-01-19] MEDS: atorvastatin 40 mg Tablet 20 MG PO (20:16)
[2020-01-19] MEDS: TRAMadol 50 mg Tablet PO (22:40)
[2020-01-19] MEDS: sodium chloride 0.9% 500 ML 999 ML IV (23:11)
[2020-01-20] VITALS (19 sets, daily range): BP systolic 74–114; BP diastolic 36–68; PULSE 51–87; RESP 16–20; TEMP 36.9–38.2; O2SAT 88–93
[2020-01-20] MEDS: sodium chloride 0.9% 1,000 ML 50 ML IV (00:02)
[2020-01-20 05:28] LABS: Basophils % 0.1 %; Eosinophils % 0.1 %; Hematocrit 35.6 % (42.0-52.0); Hemoglobin 11.5 g/dL (11.7-16.6); Lymphocytes # 1.1 10^3/uL (0.8-4.8); Lymphocytes % 15.9 %; Mean Corpuscular HGB Conc 32.3 g/dL (30.0-36.0); Mean Corpuscular Volume 86.6 fL (80-94); Mean Platelet Volume 12.6 fL (7.4-10.4); Monocytes # 0.5 10^3/uL (0.2-0.9); Monocytes % 7.6 %; Neutrophils # 5.4 10^3/uL (1.8-7.7); Neutrophils % 75.6 %; Nucleated Red Blood Cells % 0 %; Platelet Count 165 10^3/cmm (130-400); Red Blood Count 4.11 10^6/uL (4.1-5.3); Red Cell Distribution Width 13.9 % (12.1-15.1); White Blood Count 7.1 10^3/uL (4.0-10.0)
[2020-01-20 06:48] LABS: Alanine Aminotransferase 15 U/L (0-41); Albumin Level 3.2 g/dL (3.5-5.2); Alkaline Phosphatase 53 IU/L (40-130); Anion Gap 15.3 (5-19); Aspartate Amino Transferase 26 U/L (0-40); Blood Urea Nitrogen 9 mg/dL (8-23); C Reactive Protein 101.8 mg/L (0.0-4.9); Calcium 8.3 mg/dL (8.5-10.5); Carbon Dioxide 22 mmol/L (22-29); Chloride 107 mmol/L (98-107); Ferritin 210 ng/mL (30-400); Glucose 103 mg/dL (65-115); Lactate Dehydrogenase 244 U/L (135-225); Osmolality Calculated 288 mOsm/kg (285-295); Potassium 3.3 mmol/L (3.5-5.1); Sodium 141 mmol/L (136-145); Total Bilirubin 0.2 mg/dL (0.15-1.2); Total Protein 6.2 g/dL (6.6-8.7)
--- NOTE | 2020-01-20 07:25 | XR_ITS ---
WS: [id number] XR chest 1V portable [id number] REASON FOR EXAM: hypoxia FINDINGS: This study shows shift of the mediastinum slightly to the right with evidence of edema this changes in the right lung suggesting atelectasis pneumonia. The heart is not enlarged. The above findings were not seen on January 17, 2019 XR/XR chest 1V portable [id number] IMPRESSION: Developing pneumonia atelectasis in the right lung.
--- NOTE | 2020-01-20 07:28 | ECG_ITS ---
Measurements Intervals [place] Rate: 68 P: 34 AR: 164 QRS: -33 QRSD: 113 T: 32 QT: 371 QTc: 395 SINUS RHYTHM MARKED LEFT AXIS DEVIATION [QRS AXIS < -30] POSSIBLE LATERAL MYOCARDIAL INFARCTION [30 ms Q WAVE IN I/aVL/V5/V6], OF IN INDETERMINATE AGE Compared to ECG 01/18/2020 20:49:55 Myocardial infarct finding now present Electronically Signed On 01-20-2020 18:27:30 CDT by Ynes Maravilla M.D. [email or web address]
--- NOTE | 2020-01-20 07:41 | P.PN_ITS ---
Subjective Subjective: Interval history: Events of last night noted. Patient had hypotension, therefore epinephrine was started after fluid challenge did not resolve this. He also required oxygen 2 L per nasal cannula started. He had several temperature elevations. When talking with the patient he reports he feels okay. He is not short of breath. He reports a little bit of right lower back pain to hip pain, reporting this is secondary to him being in bed quite a while. Has been drinking but does not really feel like eating much although this is better than it was when he was at home. He has had a rare cough. No hemoptysis or significant sputum production. No calf pain. No dysuria. Denies any pleuritic pain whatsoever. Medications: Reviewed: Yes Vitals/I&O/Wt Last Vital Signs Temp 98.5 F 01/20/20 04:00 Pulse 51 L 01/20/20 04:00 Resp 16 01/20/20 04:00 BP 74/36 01/20/20 04:00 Pulse Ox 93 01/20/20 04:00 01/19/20 01/20/20 01/20/20 22:59 06:59 14:59 Intake Total 400 / 1397.5 1465.630 / 2863.130 Output Total 600 / 1450 Balance 400 / 547.5 865.630 / 1413.130 Weight last 48 hrs Weight 68.039 kg Physical Exam Narrative: EXAM NARRATIVE: General exam is a conversant white male, in no apparent distress. Denies being short of breath on oxygen. HEENT: Mucous membranes moist. Neck is supple no lymphadenopathy or thyromegaly Cardiovascular regular rate and rhythm without murmur, no S3 or S4 Lungs no wheezing. Coarse breath sounds, right greater than left. With deep breathing he does not generate a cough. Abdomen is soft, positive bowel sounds. No obvious organomegaly Extremities no cyanosis clubbing or edema. No pain to palpation. Distal refill brisk Skin no rash Data : 01/20/20 04:15 01/20/20 06:20 A&P Assessment and plan (1) COVID-19: He has developed a fever last night. He required reinitiation of oxygen. Secondary to hypotension pressors were started. CRP is elevated, but lymphopenia is corrected, no transaminitis, LDH improving, ferritin level normal. Secondary to recurrent fever this could be worsening COVID 19, or acute presentation of bacterial infection. Check blood cultures, pro calcitonin, urinalysis, chest x-ray. Initiate cefepime. Check EKG, with QTC interval. Discussed with patient the risks, potential benefits of hydroxychloroquine. If no obvious evidence of bacterial infection and no prolonged QTC, will initiate this today. Remdesivir is not available here currently. Status: Acute (2) Acute respiratory failure with hypoxemia: Currently requiring 2 L of oxygen. He does have a significant past history of smoking, and abnormal lung exam currently so he will use some Combivent as needed through metered-dose inhaler. Check BNP Repeat chest x-ray as above Status: Acute (3) Chest pain: Troponin negative and previously no concerning delta. He has had no recurrence of his chest discomfort. However, secondary to hypotension will check d-dimer. Status: Acute Qualifiers: Chest pain type: precordial pain Qualified Code(s): R07.2 - Precordial pain Additional A&P Information Hypothyroidism, continue home medication Hyperlipidemia, continue home medication Continue fluids Full code Lovenox for DVT prophylaxis Repeat laboratory, and inflammatory markers tomorrow. Attestations Medical Necessity Statement*: Needs continued ICU care secondary to hypotension requiring norepinephrine. Critical Care Time: 54 minutes currently spent in ICU care interviewing patient, reviewing laboratory, reviewing norepinephrine drip, reviewing further work-up of clinical deterioration since yesterday as well as treatment course. Coding Level of Care Code Acute Estimation Manager for Alanna Savage Diagnoses COVID-19 U07.1 Acute respiratory failure with hypoxemia J96.01 Chest pain R07.2 Chest pain type: precordial pain
[2020-01-20] MEDS: enoxaparin 40 mg/0.4 mL Syringe SUBCUT (07:52)
[2020-01-20] MEDS: levothyroxine 150 mcg Tablet 75 MCG PO (07:52)
[2020-01-20] MEDS: cefepime 2,000 MG in sodium chloride 0.9% (plus) 50 ML 100 MG IV ×2 (07:53→15:36)
[2020-01-20 09:57] LABS: D Dimer 0.44 ug/mIFEU (0-0.59)
[2020-01-20 10:01] LABS: NT Pro B Type Natriuretic Pept 519 pg/mL (0-125); Procalcitonin 0.06 ng/mL (0-0.5)
[2020-01-20] MEDS: hydroxychloroquine 200 mg Tablet 400 MG PO ×2 (10:35→21:06)
[2020-01-20] MEDS: sodium chloride 0.9% 1,000 ML 30 ML IV (11:20)
[2020-01-20] MEDS: acetaminophen 325 mg Tablet 650 MG PO (12:07)
[2020-01-20 14:15] LABS: Bilirubin Urine Neg (NEGATIVE); Blood Urine Neg (Negative); Glucose Urine UA Norm (Normal); Ketones Urine 1+ (Negative); Leukocyte Esterase Urine Negative (Negative); Nitrate Urine Negative (Negative); Protein Urine Neg (Negative); Specific Gravity, Urine 1.005 (1.005-1.030); Urine Appearance Clear (CLEAR); Urine Color Yellow (Yellow); Urobilinogen Urine Norm (Negative); pH Urine 5 (5-7)
[2020-01-20 14:16] LABS: Add Urine Culture? No; Bacteria Urine TRACE
[2020-01-20] MEDS: atorvastatin 40 mg Tablet 20 MG PO (21:05)
[2020-01-21] VITALS (22 sets, daily range): BP systolic 100–131; BP diastolic 56–87; PULSE 58–74; RESP 5–22; TEMP 36.8–37.2; O2SAT 87–96
[2020-01-21] MEDS: cefepime 2,000 MG in sodium chloride 0.9% (plus) 50 ML 100 MG IV ×3 (00:27→15:11)
[2020-01-21 04:41] LABS: Basophils % 0.2 %; Eosinophils % 0.6 %; Hematocrit 37.6 % (42.0-52.0); Hemoglobin 11.9 g/dL (11.7-16.6); Lymphocytes # 0.9 10^3/uL (0.8-4.8); Lymphocytes % 17.5 %; Mean Corpuscular HGB Conc 31.6 g/dL (30.0-36.0); Mean Corpuscular Hemoglobin 27.5 pg (28.0-34.0); Monocytes # 0.4 10^3/uL (0.2-0.9); Monocytes % 7.4 %; Neutrophils # 3.7 10^3/uL (1.8-7.7); Neutrophils % 73.5 %; Nucleated Red Blood Cells % 0 %; Platelet Count 145 10^3/cmm (130-400); Red Blood Count 4.32 10^6/uL (4.1-5.3); Red Cell Distribution Width 13.6 % (12.1-15.1)
[2020-01-21 04:59] LABS: Alanine Aminotransferase 18 U/L (0-41); Albumin Level 3.1 g/dL (3.5-5.2); Alkaline Phosphatase 53 IU/L (40-130); Anion Gap 14.3 (5-19); Aspartate Amino Transferase 30 U/L (0-40); Blood Urea Nitrogen 7 mg/dL (8-23); Calcium 8.2 mg/dL (8.5-10.5); Carbon Dioxide 24 mmol/L (22-29); Chloride 105 mmol/L (98-107); Creatinine Clr Calc Pharmacy 78.2095; Globulin 2.9 g/dL (1.3-4.6); Glucose 91 mg/dL (65-115); Osmolality Calculated 285 mOsm/kg (285-295); Potassium 3.3 mmol/L (3.5-5.1); Sodium 140 mmol/L (136-145); Total Bilirubin 0.2 mg/dL (0.15-1.2)
[2020-01-21 05:17] LABS: Lactate Dehydrogenase 318 U/L (135-225)
[2020-01-21 05:20] LABS: C Reactive Protein 129.9 mg/L (0.0-4.9)
[2020-01-21 05:34] LABS: D Dimer 0.82 ug/mIFEU (0-0.59)
[2020-01-21 05:52] LABS: Ferritin 247 ng/mL (30-400)
--- NOTE | 2020-01-21 07:31 | PM.PN ---
Subjective Subjective: Interval history: Chris reports he is feeling okay. He reports he is not sure if he is short of breath. Certainly is not on the oxygen but he has not been up to walk. No chest pain. No nausea. Thinks he can taste his food better. Certainly eating better than he was at home. Occasional cough, usually nonproductive Medications: Reviewed: Yes Vitals/I&O/Wt Last Vital Signs Temp 98.7 F 01/21/20 07:16 Pulse 74 01/21/20 07:16 Resp 17 01/21/20 07:16 BP 104/56 01/21/20 07:16 Pulse Ox 90 01/21/20 07:16 01/20/20 01/21/20 01/21/20 22:59 06:59 14:59 Intake Total 270 / 1664.349 Output Total 375 / 1075 950 / 5 Balance -105 / 589.349 -950 / -360.651 Physical Exam Narrative: EXAM NARRATIVE: General exam is a conversant white male, in no apparent distress. Denies being short of breath on oxygen. HEENT: Mucous membranes moist. Neck is supple no lymphadenopathy or thyromegaly Cardiovascular regular rate and rhythm without murmur, no S3 or S4 Lungs no wheezing. Can breathe deep, without significant wheeze. Coarse breath sounds noted yesterday are faintly present but improved Abdomen is soft, positive bowel sounds. No obvious organomegaly Extremities no cyanosis clubbing or edema. No pain to palpation. Distal refill brisk Skin no rash Data : 01/21/20 04:10 01/21/20 04:10 Micro: Microbiology 01/20/20 07:59 Blood Culture - Preliminary Blood SPECIMEN COLLECTED 01/20/20 07:58 Blood Culture - Preliminary Blood SPECIMEN COLLECTED A&P Assessment and plan (1) COVID-19: Last fever was yesterday around noon. He has been requiring approximately 2 L of oxygen but was placed on 3 L last night. Nursing alerts me that when he lays on his back, whether he is on 1 or 3 L his sats tends to stay in the upper 80s. With repositioning to his side or prone oxygen level goes up. Patient has been counseled to lay prone as much as possible. He has had occasional cough but it is not been very significant. Patient did have hypotension during this hospital course, but this resolved yesterday afternoon and he has not required any pressors since that time. Ferritin is normal but trended upward. LDH, CRP, d-dimer have elevated. No transaminitis, or severe lymphopenia currently. Secondary to fever yesterday, requiring oxygen, there was concern of worsening COVID 19, or acute presentation of bacterial infection. Chest x-ray was concerning for developing right-sided pneumonia. Procalcitonin level was normal. Blood cultures were obtained which are negative to date. Cefepime, and hydroxychloroquine were initiated January 19. Remdesivir is not available here currently, and currently his symptomatology is not severe. Of note he is able to get 2000 on incentive spirometry. QTC was checked prior to initiation of hydroxychloroquine and not prolonged. QT corrected today is 380 based on telemetry pulled this morning Status: Acute (2) Acute respiratory failure with hypoxemia: Currently requiring 2 L of oxygen. He does have a significant past history of smoking, and abnormal lung exam currently so continue Combivent as needed through metered-dose inhaler. Status: Acute (3) Chest pain: Troponin negative and previously no concerning delta. He has had no recurrence of his chest discomfort. Status: Acute Qualifiers: Chest pain type: precordial pain Qualified Code(s): R07.2 - Precordial pain Additional A&P Information Hypothyroidism, continue home medication Hyperlipidemia, continue home medication Mild hypokalemia. Supplemented. Full code Lovenox for DVT prophylaxis Repeat laboratory, and inflammatory markers tomorrow. Ambulate today. Wean oxygen if possible. Attestations Medical Necessity Statement*: Needs continued hospital stay for further IV antibiotics for concern of developing pneumonia, continue close monitoring secondary to positive Covid 19 with increasing inflammatory markers, still requiring oxygen. I will review this again this afternoon, to determine if any improvement occurred that would allow him to discharge home. 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
[2020-01-21 08:27] LABS: Magnesium 2.3 mg/dL (1.7-2.3)
[2020-01-21] MEDS: enoxaparin 40 mg/0.4 mL Syringe SUBCUT (08:33)
[2020-01-21] MEDS: hydroxychloroquine 200 mg Tablet PO ×2 (08:33→21:00)
[2020-01-21] MEDS: levothyroxine 150 mcg Tablet 75 MCG PO (08:33)
--- NOTE | 2020-01-21 12:12 | PC.NURSE ---
patient update Patient resting in bed at this time. O2 sats is 92% on 2L. Patient was up to bathroom with assistance from Dr. Leger. Patient was on room air while doing so, denied shortness of breath, once back in bed and pulse ox was placed on patient, patient o2 sats were 88-90%. 2L nasal cannula place back on patient.
--- NOTE | 2020-01-21 15:59 | PC.SOCIAL ---
IM follow up information given to Dr Leger and he will update patient that he has the right to appeal discharge. Patient is in COVID unit if he chooses to appeal dc Dr Leger will have him call Case Management or staff working with patient will notify CM.
[2020-01-21] MEDS: famotidine 20 mg Tablet PO (17:19)
[2020-01-21] MEDS: calcium carbonate 500 mg Chew Tablet PO (17:19)
[2020-01-21] MEDS: atorvastatin 40 mg Tablet 20 MG PO (21:00)
[2020-01-21] MEDS: acetaminophen 325 mg Tablet 650 MG PO (21:01)
[2020-01-22] VITALS (41 sets, daily range): BP systolic 91–133; BP diastolic 39–80; PULSE 53–88; RESP 0–28; TEMP 36.6–38.3; O2SAT 75–96
[2020-01-22] MEDS: cefepime 2,000 MG in sodium chloride 0.9% (plus) 50 ML 100 MG IV ×4 (00:47→22:30)
[2020-01-22 04:52] LABS: Basophils % 0.2 %; Eosinophils # 0.1 10^3/uL (0.0-0.8); Eosinophils % 1.3 %; Hematocrit 37.1 % (42.0-52.0); Hemoglobin 11.6 g/dL (11.7-16.6); Lymphocytes # 0.7 10^3/uL (0.8-4.8); Lymphocytes % 12.2 %; Mean Corpuscular HGB Conc 31.3 g/dL (30.0-36.0); Mean Corpuscular Hemoglobin 27.4 pg (28.0-34.0); Mean Corpuscular Volume 87.5 fL (80-94); Mean Platelet Volume 11.3 fL (7.4-10.4); Monocytes # 0.6 10^3/uL (0.2-0.9); Monocytes % 10.4 %; Neutrophils # 4.2 10^3/uL (1.8-7.7); Neutrophils % 75.2 %; Nucleated Red Blood Cells % 0 %; Platelet Count 155 10^3/cmm (130-400); Red Blood Count 4.24 10^6/uL (4.1-5.3); Red Cell Distribution Width 13.6 % (12.1-15.1); White Blood Count 5.6 10^3/uL (4.0-10.0)
[2020-01-22 05:07] LABS: Alanine Aminotransferase 23 U/L (0-41); Albumin Level 3.1 g/dL (3.5-5.2); Alkaline Phosphatase 56 IU/L (40-130); Anion Gap 14.6 (5-19); Aspartate Amino Transferase 37 U/L (0-40); Blood Urea Nitrogen 6 mg/dL (8-23); Calcium 8.2 mg/dL (8.5-10.5); Carbon Dioxide 24 mmol/L (22-29); Chloride 106 mmol/L (98-107); Creatinine Clr Calc Pharmacy 78.2095; Globulin 2.4 g/dL (1.3-4.6); Glucose 118 mg/dL (65-115); Osmolality Calculated 289 mOsm/kg (285-295); Potassium 3.6 mmol/L (3.5-5.1); Sodium 141 mmol/L (136-145); Total Bilirubin 0.3 mg/dL (0.15-1.2); Total Protein 5.5 g/dL (6.6-8.7)
[2020-01-22 05:18] LABS: Ferritin 283 ng/mL (30-400); Lactate Dehydrogenase 338 U/L (135-225)
[2020-01-22 07:04] LABS: D Dimer 1.43 ug/mIFEU (0-0.59)
--- NOTE | 2020-01-22 07:38 | PC.NURSE ---
Pt insisting that he go home today. He does state that he lives alone and does not have oxygen.
--- NOTE | 2020-01-22 09:27 | P.PN_ITS ---
Subjective Subjective: Interval history: Chris reports he is wanting to get up and move more if we can get him some pants. Denies shortness of breath but after walk this morning(off oxyen) in room he was winded and got dizzy. No significant heart rate increase was noted but sat went down to 85%. No headache or chest pain. Medications: Reviewed: Yes Vitals/I&O/Wt Last Vital Signs Temp 99.0 F 01/22/20 07:00 Pulse 61 01/22/20 08:00 Resp 16 01/22/20 08:00 BP 127/70 01/22/20 08:00 Pulse Ox 84 L 01/22/20 08:00 01/21/20 01/22/20 01/22/20 22:59 06:59 14:59 Intake Total 50 / 460 50 / 510 160 / 160 Output Total 1300 / 1950 350 / 2300 350 / 350 Balance -1250 / -1490 -300 / -1790 -190 / -190 Physical Exam Narrative: EXAM NARRATIVE: General exam is a conversant white male, in no apparent distress. Reports he is frustrated with being here. Neck no LAD Cardiovascular regular rate and rhythm without murmur, no S3 or S4 Lungs no wheezing. A few coarse breath sounds at the bases. Abdomen is soft, positive bowel sounds. No obvious organomegaly Extremities no cyanosis clubbing or edema. refill brisk Data : 01/22/20 04:15 01/22/20 04:15 Other Labs: QTc interval calculate off strip using [place] calculator, 405 Micro: Microbiology 01/20/20 07:58 Blood Culture - Preliminary Blood NEGATIVE TO DATE 01/20/20 07:59 Blood Culture - Preliminary Blood NEGATIVE TO DATE A&P Assessment and plan (1) COVID-19: He has now been afebrile for the last 24 hours. He is still requiring oxygen 2 L per NC. Will try to turn this down but it is known with exertion he desaturates. Inflammatory markers continue to climb slowly. Hypotension he previously had has resolved. Continue prone positioning as much as possible. Continue hydoxychlorquine, QTc is acceptable Secondary to fever, chest xray concerning for developing right sided pneumonia Cefipime was started January 19. Consider repeat xray tomorrow if not making clinical improvement. Aspiration pneumonitis is not suspected. Remdesivir is not available here currently, and currently his symptomatology is not severe. Of note he is able to get 3000 on incentive spirometry. Status: Acute (2) Acute respiratory failure with hypoxemia: Currently requiring 1-2 L of oxygen, desaturates significantly with exert ion. He does have a significant past history of smoking but quit around 1979. Did not need oxygen at home previously and reported good excercise tolerance. Combivent as needed through metered-dose inhaler. Encourage incentive spirometer. Status: Acute (3) Chest pain: Troponin negative and previously no concerning delta. EKG with no acute concerns. He has had no recurrence of his chest discomfort. Status: Acute Qualifiers: Chest pain type: precordial pain Qualified Code(s): R07.2 - Precordial pain Additional A&P Information Hypothyroidism, continue home medication Hyperlipidemia, continue home medication Mild hypokalemia. Supplemented. Magnesium level checked previously and normal. GERD, continue Pepcid Full code Lovenox for DVT prophylaxis Ambulate, wean oxygen as tolerated. Consider discharge when clinical improvement is noted. I would like to see his inflammatory markers improve as well. He could conceivably need oxygen on discharge. Attestations Medical Necessity Statement*: Needs continued hospital stay for close monitoring secondary to Covid 19 infection, hypoxia requiring oxygen, viral and possibly bacterial pneumonitis. 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
[2020-01-22] MEDS: levothyroxine 150 mcg Tablet 75 MCG PO (10:57)
[2020-01-22] MEDS: famotidine 20 mg Tablet PO ×2 (10:57→19:16)
[2020-01-22] MEDS: enoxaparin 40 mg/0.4 mL Syringe SUBCUT (10:57)
[2020-01-22] MEDS: hydroxychloroquine 200 mg Tablet PO ×2 (11:42→20:55)
--- NOTE | 2020-01-22 14:55 | PC.NURSE ---
02 turned off. Pt was currently 92-94% on 1L/NC. will continue to monitor.
[2020-01-22] MEDS: acetaminophen 325 mg Tablet 650 MG PO ×2 (16:39→22:29)
--- NOTE | 2020-01-22 16:47 | PC.NURSE ---
pt 02 dropping and maintaining 86% on room air. 1 L/NC put back on.
[2020-01-22] MEDS: atorvastatin 40 mg Tablet 20 MG PO (18:40)
--- NOTE | 2020-01-22 18:50 | PC.NURSE ---
pt pulled 1999 on IS
[2020-01-22] MEDS: trazodone 100 mg Tablet PO (22:29)
[2020-01-23] VITALS (29 sets, daily range): BP systolic 99–127; BP diastolic 48–78; PULSE 57–81; RESP 6–29; TEMP 36.8–37.4; O2SAT 86–94
[2020-01-23 04:41] LABS: Basophils % 0.2 %; Eosinophils # 0.1 10^3/uL (0.0-0.8); Eosinophils % 2.3 %; Hemoglobin 12.1 g/dL (11.7-16.6); Lymphocytes # 0.7 10^3/uL (0.8-4.8); Lymphocytes % 11.9 %; Mean Corpuscular HGB Conc 31.8 g/dL (30.0-36.0); Mean Corpuscular Hemoglobin 27.3 pg (28.0-34.0); Mean Corpuscular Volume 85.8 fL (80-94); Mean Platelet Volume 11.5 fL (7.4-10.4); Monocytes # 0.7 10^3/uL (0.2-0.9); Monocytes % 11.6 %; Neutrophils # 4.5 10^3/uL (1.8-7.7); Neutrophils % 73.2 %; Nucleated Red Blood Cells % 0 %; Platelet Count 174 10^3/cmm (130-400); Red Blood Count 4.43 10^6/uL (4.1-5.3); Red Cell Distribution Width 13.2 % (12.1-15.1); White Blood Count 6.1 10^3/uL (4.0-10.0)
[2020-01-23 04:56] LABS: Ferritin 350 ng/mL (30-400); Lactate Dehydrogenase 328 U/L (135-225); Magnesium 2.2 mg/dL (1.7-2.3)
[2020-01-23 04:57] LABS: Alanine Aminotransferase 38 U/L (0-41); Albumin Level 3.2 g/dL (3.5-5.2); Alkaline Phosphatase 71 IU/L (40-130); Anion Gap 13.1 (5-19); Aspartate Amino Transferase 51 U/L (0-40); Blood Urea Nitrogen 8 mg/dL (8-23); C Reactive Protein 117.8 mg/L (0.0-4.9); Carbon Dioxide 28 mmol/L (22-29); Chloride 104 mmol/L (98-107); Creatinine Clr Calc Pharmacy 78.2095; Globulin 3.6 g/dL (1.3-4.6); Glucose 97 mg/dL (65-115); Osmolality Calculated 288 mOsm/kg (285-295); Potassium 4.1 mmol/L (3.5-5.1); Sodium 141 mmol/L (136-145); Total Bilirubin 0.5 mg/dL (0.15-1.2); Total Protein 6.8 g/dL (6.6-8.7)
--- NOTE | 2020-01-23 07:46 | PC.SOCIAL ---
Follow up IM information relayed verbally to patient by Dr Macedo. If patient has questions Dr Macedo will contact .
[2020-01-23] MEDS: levothyroxine 150 mcg Tablet 75 MCG PO (08:33)
[2020-01-23] MEDS: famotidine 20 mg Tablet PO ×2 (08:33→17:01)
[2020-01-23] MEDS: enoxaparin 40 mg/0.4 mL Syringe SUBCUT (08:33)
[2020-01-23] MEDS: hydroxychloroquine 200 mg Tablet PO ×2 (08:44→21:03)
[2020-01-23] MEDS: cefepime 2,000 MG in sodium chloride 0.9% (plus) 50 ML 100 MG IV ×3 (08:44→23:41)
[2020-01-23] MEDS: docusate sodium 100 mg Capsule PO ×2 (09:31→17:00)
--- NOTE | 2020-01-23 10:04 | P.PN_ITS ---
Subjective Subjective: Interval history: Patient awake in bed at time of exam today. He reported having no appetite and rib pain on the R with moving or twisting. Patient denied any feeling of shortness of breath. He stated that he feels like he needs to have a bowel movement, has not had once since admission. Reported to have desaturations overnight into 80s. This morning when patient wa s sleeping he was 85-88% on 1L by NC, oxygen increased to 2L. Vitals/I&O/Wt Last Vital Signs Temp 98.7 F 01/23/20 08:00 Pulse 65 01/23/20 08:00 Resp 14 01/23/20 08:00 BP 113/61 01/23/20 08:00 Pulse Ox 90 01/23/20 08:00 01/22/20 01/23/20 01/23/20 22:59 06:59 14:59 Intake Total 170 / 480 50 / 530 480 / 480 Output Total 1020 / 2220 800 / 3020 350 / 350 Balance -850 / -1740 -750 / -2490 130 / 130 Physical Exam Const: COMMON NORMALS: oriented x3 and alert GENERAL APPEARANCE: cooperative ORIENTATION/CONSCIOUSNESS: Yes awake, Yes oriented to person, Yes oriented to place and Yes oriented to time HENMT: COMMON NORMALS: normocephalic and head/scalp atraumatic HEAD & SCALP: normocephalic and atraumatic Eye: COMMON NORMALS: PERRL PUPIL: Yes PERRL Neck/C-Spine: COMMON NORMALS: supple GENERAL: Yes normal visual inspection Chest: OTHER: Tenderness to palpation over the lateral ribs on the R, rib 7-8 Resp: AUSCULTATION: no rhonchi and no wheezes OTHER: Diminished breath sounds bilaterally, no appreciable wheezing or rhonchi Cardio: COMMON NORMALS: regular rate, regular rhythm and no murmurs RATE: regular rate RHYTHM: regular rhythm GI: COMMON NORMALS: soft to palpation and non-tender INSPECTION: No abdominal distension AUSCULTATION: Yes normoactive bowel sounds PALPATION: Yes soft Extremity: COMMON NORMALS: no clubbing, cyanosis or edema and no calf tenderness Neuro: COMMON NORMALS: oriented x3, CN's II-XII intact bilaterally and moves all extremities SENSORIUM/ORIENTATION: Yes alert, Yes oriented to person, Yes oriented to place and Yes oriented to time SPEECH: speech normal Psych: COMMON NORMALS: mental status grossly normal and cooperative Skin: COMMON NORMALS: no rashes or lesions noted GENERAL SKIN EXAM: no rashes or lesions noted Data : 01/23/20 04:27 01/23/20 04:27 A&P Assessment and plan (1) COVID-19: Isolation precautions Continue with oxygen per protocol. Had to increase to 2L by NC today, patient continues to have episodes of desaturation with any movement or exertion and desaturation to 85-89% at rest today. Requires further hospitalization due to this concern for desaturation with acute respiratory failure. Discussed with patient the treatment plan with Plaquenil, discussed this medication and use including risks and potential benefits of medication, he verbalized understanding and agreed with plan. LDH slightly improved today, will recheck labs in AM including D-dimer Ipratropium-albuterol continued Status: Acute (2) Acute respiratory failure with hypoxemia: Due to COVID-19, plan as above Status: Acute (3) Chest pain: Secondary to viral pneumonia Status: Acute Qualifiers: Chest pain type: precordial pain Qualified Code(s): R07.2 - Precordial pain (4) Hypothyroidism: Continue home levothyroxine 75mcg daily Status: Acute (5) Dyslipidemia: Status: Acute Additional A&P Information Developing R lower lobe pneumonia: Started on Cefepime on 01/20/20, continued at this time. Due to continued hypoxemia will repeat CXR today HLD: continue home statin Hypotension: improved, remains off levophed GERD: continue pepcid Constipation: started docusate 100mg BID, addition of medications as needed DVT ppx: Lovenox Diet: Regular diet Code status: Full code Attestations Medical Necessity Statement*: Patient requires further hospization due to COVID-19 viral pneumonia along with concern for R lower lobe pneumonia. 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
--- NOTE | 2020-01-23 10:22 | XR_ITS ---
WS: [id number] XR chest 1V portable [id number] REASON FOR EXAM: hypoxia, COVID-19 pneumonia FINDINGS: Central patchy infiltrates are again seen these are increased since previous exam. There appears to be overriding infiltrate in the fibrosis previously described. XR/XR chest 1V portable [id number] IMPRESSION: Increasing infiltrates with the presentCOVID -19, we recommend testing to rule out that entity.
[2020-01-23] MEDS: calcium carbonate 500 mg Chew Tablet PO (19:25)
[2020-01-23] MEDS: atorvastatin 40 mg Tablet 20 MG PO (21:03)
[2020-01-23] MEDS: acetaminophen 325 mg Tablet 650 MG PO (21:42)
[2020-01-24] VITALS (25 sets, daily range): BP systolic 80–144; BP diastolic 42–80; PULSE 58–79; RESP 14–28; TEMP 36.5–37.1; O2SAT 86–97
[2020-01-24 03:50] LABS: Basophils % 0.3 %; Eosinophils # 0.1 10^3/uL (0.0-0.8); Eosinophils % 1.1 %; Hematocrit 36.1 % (42.0-52.0); Hemoglobin 11.6 g/dL (11.7-16.6); Lymphocytes # 0.9 10^3/uL (0.8-4.8); Lymphocytes % 13.6 %; Mean Corpuscular HGB Conc 32.1 g/dL (30.0-36.0); Mean Corpuscular Hemoglobin 27.3 pg (28.0-34.0); Mean Corpuscular Volume 84.9 fL (80-94); Mean Platelet Volume 11.6 fL (7.4-10.4); Monocytes # 0.8 10^3/uL (0.2-0.9); Monocytes % 12.4 %; Neutrophils # 4.7 10^3/uL (1.8-7.7); Neutrophils % 71.2 %; Nucleated Red Blood Cells % 0 %; Platelet Count 197 10^3/cmm (130-400); Red Blood Count 4.25 10^6/uL (4.1-5.3); Red Cell Distribution Width 13.2 % (12.1-15.1); White Blood Count 6.6 10^3/uL (4.0-10.0)
[2020-01-24 04:10] LABS: Anion Gap 14.9 (5-19); Blood Urea Nitrogen 9 mg/dL (8-23); Calcium 8.5 mg/dL (8.5-10.5); Carbon Dioxide 24 mmol/L (22-29); Chloride 102 mmol/L (98-107); Creatinine Clr Calc Pharmacy 78.2095; Glucose 89 mg/dL (65-115); Osmolality Calculated 279 mOsm/kg (285-295); Potassium 3.9 mmol/L (3.5-5.1); Sodium 137 mmol/L (136-145)
[2020-01-24 04:35] LABS: D Dimer 2.98 ug/mIFEU (0-0.59)
[2020-01-24] MEDS: enoxaparin 40 mg/0.4 mL Syringe SUBCUT (08:14)
[2020-01-24] MEDS: docusate sodium 100 mg Capsule PO ×2 (08:14→17:07)
[2020-01-24] MEDS: cefepime 2,000 MG in sodium chloride 0.9% (plus) 50 ML 100 MG IV ×3 (08:15→23:57)
[2020-01-24] MEDS: hydroxychloroquine 200 mg Tablet PO ×2 (08:15→21:24)
[2020-01-24] MEDS: acetaminophen 325 mg Tablet 650 MG PO (08:15)
[2020-01-24] MEDS: famotidine 20 mg Tablet PO ×2 (08:15→17:07)
[2020-01-24] MEDS: levothyroxine 150 mcg Tablet 75 MCG PO (08:15)
[2020-01-24 08:54] LABS: Lactate Dehydrogenase 335 U/L (135-225)
--- NOTE | 2020-01-24 12:33 | P.PN_ITS ---
Subjective Subjective: Interval history: Patient awake in bed this morning during exam. Reported feeling tired and fatigued. Has cough with IS use, reports cough becoming loose with sputum production. Denies any abdominal pain, no LE pain. Discussed with patient increasing d-dimer and studies with COVID-19 treatment, including full dose anticoagulation. Discussed risks and benefits of treatment including, but not limited to risk of bleeding, he agreed to proceed with full dose anticoagulation and agreed with treatment plan. He denied any concerns. He is anxious to return home, however he understands that he continues to desaturate with any activity or without oxygen. Medications: Reviewed: Yes Vitals/I&O/Wt Last Vital Signs Temp 98.2 F 01/24/20 10:00 Pulse 62 01/24/20 10:00 Resp 14 01/24/20 10:00 BP 95/47 01/24/20 10:00 Pulse Ox 91 01/24/20 10:00 01/23/20 01/24/20 01/24/20 22:59 06:59 14:59 Intake Total 290 / 1060 550 / 1610 360 / 360 Output Total 875 / 5 1150 / 3175 Balance -585 / -965 -600 / -1565 360 / 360 Physical Exam Const: COMMON NORMALS: oriented x3 and alert GENERAL APPEARANCE: cooperative ORIENTATION/CONSCIOUSNESS: Yes awake, Yes oriented to person, Yes oriented to place and Yes oriented to time HENMT: COMMON NORMALS: normocephalic and head/scalp atraumatic HEAD & SCALP: normocephalic and atraumatic Eye: COMMON NORMALS: PERRL PUPIL: Yes PERRL Neck/C-Spine: COMMON NORMALS: supple GENERAL: Yes normal visual inspection Chest: OTHER: tender over the R lateral chest wall, no mass, lesion or erythema Resp: EFFORT & INSPECTION: Yes symmetric chest movement and Yes tachypneic AUSCULTATION: no rhonchi and no wheezes OTHER: Diminished breath sounds bilaterally, no appreciable wheezing or rhonchi Cardio: COMMON NORMALS: regular rate, regular rhythm and no murmurs RATE: r egular rate RHYTHM: regular rhythm GI: COMMON NORMALS: soft to palpation and non-tender INSPECTION: No abdominal distension AUSCULTATION: Yes normoactive bowel sounds PALPATION: Yes soft Extremity: COMMON NORMALS: no clubbing, cyanosis or edema and no calf tenderness Neuro: COMMON NORMALS: oriented x3, CN's II-XII intact bilaterally and moves all extremities SENSORIUM/ORIENTATION: Yes alert, Yes oriented to person, Yes oriented to place and Yes oriented to time SPEECH: speech normal Psych: COMMON NORMALS: mental status grossly normal and cooperative Skin: COMMON NORMALS: no rashes or lesions noted GENERAL SKIN EXAM: no rashes or lesions noted Data : 01/24/20 03:40 01/24/20 03:40 A&P Assessment and plan (1) COVID-19: Isolation precautions Continue with oxygen per protocol. Continues to require oxygen therapy, patient reporting increased productive cough today Desaturation to mid to lower 80s without oxygen. Has been decreased to 1.5L NC and saturations 88-92% Continue Plaquenil, patient is aware of risks and potential benefits of treatment D-dimer doubled today. Discussed with patient the recommendation to increase to treatment dose anticoagulation, Will increase to lovenox, 1mg/kg q12hr. Discussed with him the risks of bleeding and potential benefits that have been shown with treatment of COVID-19 and he agreed with plan. Will continue to recheck labs tomorrow. Potential repeat CXR in AM Ipratropium-albuterol continued Status: Acute (2) Acute respiratory failure with hypoxemia: Due to COVID-19, plan as above Status: Acute (3) Chest pain: Secondary to viral pneumonia with concern for bacterial pneumonia on cefepime. Will check procalcitonin and discontinue cefepime if indicated Status: Acute Qualifiers: Chest pain type: precordial pain Qualified Code(s): R07.2 - Precordial pain (4) Hypothyroidism: Continue home levothyroxine 75mcg daily Status: Acute (5) Dyslipidemia: Status: Acute Additional A&P Information Developing R lower lobe pneumonia: Started on Cefepime on 01/20/20, continued at this time. repeat CXR showed increased bilateral infiltrate. Treatment plan as above. 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
[2020-01-24] MEDS: calcium carbonate 500 mg Chew Tablet PO (18:26)
[2020-01-24] MEDS: enoxaparin 80 mg/0.8 mL Syringe 70 MG SUBCUT (20:01)
--- NOTE | 2020-01-24 20:05 | PC.NURSE ---
Assessment Pt resting in bed alert and oriented X 4. Breathing even and and non-labored on 0.5L NC. Pt denies SOB. O2 sat 90-92%, other v/s reviewed. Lung sounds diminished and inspiratory crackles auscultated to RLL. Denies pain and verbalized no complaints at this time.Pt verbalizes wishes he could home . Call light in reach. Will continue to monitor.
[2020-01-24] MEDS: atorvastatin 40 mg Tablet 20 MG PO (21:24)
[2020-01-24] MEDS: trazodone 100 mg Tablet PO (21:24)
--- NOTE | 2020-01-24 23:59 | PC.NURSE ---
O2 Titrate O2 saturation 86-87% on 0.5L NC with good waveform. Pt resting in bed dozing intermittently. Encouraged cough and deep breath. O2 titrated to 2L to maintain saturation 88-90%. Will continue to monitor.
[2020-01-25] VITALS (27 sets, daily range): BP systolic 90–119; BP diastolic 52–70; PULSE 56–81; RESP 12–30; TEMP 36.6–36.8; O2SAT 2–94
[2020-01-25] MEDS: calcium carbonate 500 mg Chew Tablet PO ×2 (02:29→07:44)
[2020-01-25 05:58] LABS: Basophils % 0.4 %; Eosinophils % 0.6 %; Hematocrit 35.5 % (42.0-52.0); Hemoglobin 11.4 g/dL (11.7-16.6); Lymphocytes # 0.9 10^3/uL (0.8-4.8); Lymphocytes % 12.7 %; Mean Corpuscular HGB Conc 32.1 g/dL (30.0-36.0); Mean Corpuscular Hemoglobin 27.4 pg (28.0-34.0); Mean Corpuscular Volume 85.3 fL (80-94); Mean Platelet Volume 12.4 fL (7.4-10.4); Monocytes # 0.9 10^3/uL (0.2-0.9); Neutrophils # 5.1 10^3/uL (1.8-7.7); Neutrophils % 71.8 %; Nucleated Red Blood Cells % 0 %; Platelet Count 216 10^3/cmm (130-400); Red Blood Count 4.16 10^6/uL (4.1-5.3); Red Cell Distribution Width 13.2 % (12.1-15.1); White Blood Count 7.2 10^3/uL (4.0-10.0)
[2020-01-25 06:18] LABS: D Dimer 3.07 ug/mIFEU (0-0.59)
[2020-01-25 06:19] LABS: Ferritin 502 ng/mL (30-400); Lactate Dehydrogenase 319 U/L (135-225)
[2020-01-25 06:29] LABS: Alanine Aminotransferase 72 U/L (0-41); Alkaline Phosphatase 121 IU/L (40-130); Anion Gap 16.1 (5-19); Aspartate Amino Transferase 77 U/L (0-40); Blood Urea Nitrogen 12 mg/dL (8-23); Calcium 8.7 mg/dL (8.5-10.5); Carbon Dioxide 23 mmol/L (22-29); Chloride 103 mmol/L (98-107); Creatinine Clr Calc Pharmacy 78.2095; Globulin 3.4 g/dL (1.3-4.6); Glucose 88 mg/dL (65-115); Osmolality Calculated 282 mOsm/kg (285-295); Potassium 4.1 mmol/L (3.5-5.1); Sodium 138 mmol/L (136-145); Total Bilirubin 0.6 mg/dL (0.15-1.2); Total Protein 6.4 g/dL (6.6-8.7)
[2020-01-25] MEDS: cefepime 2,000 MG in sodium chloride 0.9% (plus) 50 ML 100 MG IV (07:40)
[2020-01-25] MEDS: pantoprazole DR 40 mg Tablet PO (08:30)
--- NOTE | 2020-01-25 09:07 | ECG_ITS ---
Measurements Intervals [place] Rate: 66 P: 24 DC: 148 QRS: -31 QRSD: 124 T: 6 QT: 398 QTc: 418 SINUS RHYTHM MARKED LEFT AXIS DEVIATION [QRS AXIS < -30] MODERATE INTRAVENTRICULAR CONDUCTION DELAY [110+ ms QRS DURATION] MINIMAL VOLTAGE CRITERIA FOR LVH, CONSIDER NORMAL VARIANT [MEETS CRITERIA IN ONE OF: R(aVL), S(V1), R(V5), R(V5/V6)+S(V1)] NONSPECIFIC ST & T-WAVE ABNORMALITY INTERPRETATION BASED ON A DEFAULT AGE OF 40 YEARS Compared to ECG 01/20/2020 08:30:38 Intraventricular conduction delay now present T-wave abnormality now present Myocardial infarct finding no longer present Electronically Signed On 01-26-2020 20:11:51 CDT by Carmen Gonzalez M.D. [email or web address]
--- NOTE | 2020-01-25 09:14 | P.PN_ITS ---
Subjective Subjective: Interval history: Patient resting in bed during exam. He reported slight increase in energy today. Reported trouble falling asleep last night, however after falling asleep he slept well. Patient was weaned down to 0.5L by NC yesterday afternoon, however due to hypoxia overnight had to be turned up to 2L by NC. Medications: Reviewed: Yes Vitals/I&O/Wt Last Vital Signs Temp 98.2 F 01/25/20 04:00 Pulse 64 01/25/20 06:00 Resp 18 01/25/20 06:00 BP 106/57 01/25/20 06:00 Pulse Ox 88 L 01/25/20 06:00 01/24/20 01/25/20 01/25/20 22:59 06:59 14:59 Intake Total 290 / 940 320 / 1260 100 / 100 Output Total 200 / 800 950 / 1750 Balance 90 / 140 -630 / -490 100 / 100 Physical Exam Const: COMMON NORMALS: oriented x3 and alert GENERAL APPEARANCE: cooperative ORIENTATION/CONSCIOUSNESS: Yes awake, Yes oriented to person, Yes oriented to place and Yes oriented to time HENMT: COMMON NORMALS: normocephalic and head/scalp atraumatic HEAD & SCALP: normocephalic and atraumatic Eye: COMMON NORMALS: PERRL PUPIL: Yes PERRL Neck/C-Spine: COMMON NORMALS: supple GENERAL: Yes normal visual inspection Resp: EFFORT & INSPECTION: Yes symmetric chest movement AUSCULTATION: no rhonchi and no wheezes OTHER: Diminished breath sounds bilaterally, no appreciable wheezing Cardio: COMMON NORMALS: regular rate, regular rhythm and no murmurs RATE: regular rate RHYTHM: regular rhythm GI: COMMON NORMALS: soft to palpation and non-tender INSPECTION: No abdominal distension AUSCULTATION: Yes normoactive bowel sounds PALPATION: Yes soft : COMMON NORMALS: Yes no CVA tenderness BLADDER/KIDNEY EXAM: Yes no CVA tenderness Back/Pelvis: COMMON NORMALS: no CVA tenderness Extremity: COMMON NORMALS: no clubbing, cyanosis or edema and no calf tenderness Neuro: COMMON NORMALS: oriented x3, CN's II-XII intact bilaterally and moves all extremities SENSORIUM/ORIENTATION: Yes alert, Yes oriented to person, Yes oriented to place and Yes oriented to time SPEECH: speech normal Psych: COMMON NORMALS: mental status grossly normal and cooperative Skin: COMMON NORMALS: no rashes or lesions noted GENERAL SKIN EXAM: no rashes or lesions noted Data : 01/25/20 04:05 01/25/20 04:05 A&P Assessment and plan (1) COVID-19: Isolation precautions Weaned oxygen to 0.5L yesterday evening, however had episodes of desaturation overnight requiring increase in O2, remains on 2L by NC today with saturation 88-90%. Will continue to wean as tolerated Continue on treatment dose Lovenox q12h Completed course of plaquenil, repeat EKG today to monitor QTc Ipratropium-albuterol continued Status: Acute (2) Acute respiratory failure with hypoxemia: Due to COVID-19, plan as above Status: Acute (3) Chest pain: Secondary to viral pneumonia. Pain now resolved Status: Acute Qualifiers: Chest pain type: precordial pain Qualified Code(s): R07.2 - Precordial pain (4) Hypothyroidism: Continue home levothyroxine 75mcg daily Status: Acute (5) Dyslipidemia: Status: Acute Additional A&P Information R lower lobe pneumonia: Has been on Cefepime since 01/20/20, completed 5d. Transition to Levaquin today due to increase LFTs believed to be from cefepime. EKG prior to starting Levaquin to monitor QTc HLD: hold statin due to increase in AST/ALT Hypotension: resolved GERD: changed to protonix Constipation: started docusate 100mg BID, improved. BM on 01/24/20 DVT ppx: Lovenox treatment dose Diet: Regular diet Code status: Full code Attestations Medical Necessity Statement*: Patient requires further hospitalization due to continued hypoxemia with viral COVID-19 pneumonia. 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
--- NOTE | 2020-01-25 09:48 | PC.NURSE ---
MR PEREZ STARTED THE SHIFT IN A SUPINE POSITION IN HIS COT, RELUCTANT TO SIT IN A FOWLERS POSITION FOR BREAKFAST. HE ATE 50% OF HIS EGGS AND TAY AND ALL HIS MILK. HE HAS SERIOUS GASTRITIS FROM TOO MUCH TAY SO HE DID NOT FINISH IT. TUMS AND PROTONIX WERE GIVEN. TISSUES TO BEDSIDE TO CLEAR HIS NASAL PASSAGES, A NEW LARGER JEREMY BED WAS OBTAINED FOR COMFORT. THE PATIENT IS UP TO CHAIR OF 0900 AND USING HIS IS AND FLUTTER PICKLE . GUIAFENISEN WAS GIVEN TO HELP BREAK UP ANY MUCOUS HE MAY HAVE IN THE LUNGS. CRACKLES WERE FINE AND DISTINCT IN BOTH BASES, LEFT GREATER THAN RIGHT. THE PATIENTS SATS ARE CONSISTENTLY 87 TO 90 ON 1.5 LITERS, THE METER WAS ADJUSTED TO A SOLID 2LITERS AND THE SATS WERE MORE LIKE [address] NELSON AT BEDSIDE NOW MAY INCREASE HIS RATE TO 3. EKG BEING PERFORMED AND ANTIBIOTICS CHANGE CONSIDERED. PATIENT DENIES PAIN. MOVES WELL IN TRANSFERS. DISCUSSED HIS FAVORITE PIZZA CHOICES AND WILL TREAT HIM LATER TODAY. HOPEFULLY IT WILL HELP HIS APPETITE.
[2020-01-25] MEDS: enoxaparin 80 mg/0.8 mL Syringe 70 MG SUBCUT ×2 (09:59→20:39)
[2020-01-25] MEDS: guaiFENesin 100 mg/5 mL UDC 10 mL 200 MG PO (10:00)
[2020-01-25] MEDS: docusate sodium 100 mg Capsule PO (10:00)
[2020-01-25] MEDS: levothyroxine 150 mcg Tablet 75 MCG PO (10:00)
[2020-01-25] MEDS: lidocaine 2% viscous 15 ML, aluminum-mag hydrox-simethicon 30 ML, sucralfate oral liq 1 GM PO (10:20)
[2020-01-25] MEDS: levoFLOXacin 750 mg Tablet PO (11:24)
[2020-01-25] MEDS: sucralfate 1 gm/10 mL Oral Liq UDC PO ×3 (11:26→20:39)
[2020-01-25] MEDS: lactobacillus 1 Tablet 1 TAB PO ×2 (16:40→20:39)
--- NOTE | 2020-01-25 19:44 | PC.NURSE ---
Assessment Pt sitting up in bed watching tv, alert and oriented X 4. Breathing is even and non-labored. Remains on 3L NC, O2 sat 92%. Denies SOB or cough. Lung pollard diminished throughout. Apical rhythm regular SR/SB. No complaints of pain at this time. Call light in reach. Will continue to monitor.
[2020-01-25] MEDS: trazodone 100 mg Tablet PO (20:40)
--- NOTE | 2020-01-25 23:11 | PC.NURSE ---
O2 Titrate/Hypoxia Pt resting in bed with eyes closed. RR 20 and shallow. O2 sat 86% with good waveform on 3.5L NC. Pt titrated to 5L NC to acheive sat of 88-90%. Humidity added to oxygen. Patient denies feeling short of breath at this time. Encouraged use/importance of IS, pt declined to use at this time. Will continue to monitor.
--- NOTE | 2020-01-25 23:52 | PC.NURSE ---
O2 Titrate Pt resting in bed with eyes closed, O2 sat 95% on 5L NC. O2 titrated to 3L NC with sat of 94%. Will continue to monitor.
[2020-01-26] VITALS (22 sets, daily range): BP systolic 87–120; BP diastolic 46–75; PULSE 54–94; RESP 14–30; TEMP 36.6–36.8; O2SAT 90–94
[2020-01-26] MEDS: acetaminophen 325 mg Tablet 650 MG PO ×2 (01:53→07:32)
[2020-01-26 05:10] LABS: Basophils # 0.1 10^3/uL (0.0-0.1); Basophils % 0.8 %; Eosinophils # 0.1 10^3/uL (0.0-0.8); Eosinophils % 0.8 %; Hematocrit 36.1 % (42.0-52.0); Hemoglobin 11.4 g/dL (11.7-16.6); Lymphocytes # 1.1 10^3/uL (0.8-4.8); Mean Corpuscular HGB Conc 31.6 g/dL (30.0-36.0); Mean Corpuscular Hemoglobin 27.4 pg (28.0-34.0); Mean Corpuscular Volume 86.8 fL (80-94); Mean Platelet Volume 11.5 fL (7.4-10.4); Monocytes # 0.9 10^3/uL (0.2-0.9); Monocytes % 12.3 %; Neutrophils # 5.2 10^3/uL (1.8-7.7); Neutrophils % 68.4 %; Nucleated Red Blood Cells % 0 %; Platelet Count 218 10^3/cmm (130-400); Red Blood Count 4.16 10^6/uL (4.1-5.3); White Blood Count 7.6 10^3/uL (4.0-10.0)
[2020-01-26 05:21] LABS: D Dimer 2.53 ug/mIFEU (0-0.59)
[2020-01-26 05:26] LABS: Alanine Aminotransferase 84 U/L (0-41); Albumin Level 2.8 g/dL (3.5-5.2); Alkaline Phosphatase 143 IU/L (40-130); Aspartate Amino Transferase 76 U/L (0-40); Blood Urea Nitrogen 12 mg/dL (8-23); C Reactive Protein 68.4 mg/L (0.0-4.9); Calcium 9.1 mg/dL (8.5-10.5); Carbon Dioxide 22 mmol/L (22-29); Chloride 103 mmol/L (98-107); Creatinine Clr Calc Pharmacy 78.2095; Glucose 92 mg/dL (65-115); Osmolality Calculated 276 mOsm/kg (285-295); Sodium 135 mmol/L (136-145); Total Bilirubin 0.5 mg/dL (0.15-1.2); Total Protein 6.8 g/dL (6.6-8.7)
[2020-01-26 05:27] LABS: Ferritin 484 ng/mL (30-400); Lactate Dehydrogenase 249 U/L (135-225)
--- NOTE | 2020-01-26 06:00 | XR_ITS ---
WS: [id number] XR chest 1V portable [id number] REASON FOR EXAM: COVID-19 pneumonia, hypoxia FINDINGS: Peripheral edema both lung pollard consistent with pneumonia. The heart is not enlarged. The hilum and apices normal. XR/XR chest 1V portable [id number] IMPRESSION: Persistent peripheral pneumonias.
[2020-01-26] MEDS: sucralfate 1 gm/10 mL Oral Liq UDC PO ×4 (07:01→20:26)
[2020-01-26] MEDS: levoFLOXacin 750 mg Tablet PO (07:01)
[2020-01-26] MEDS: enoxaparin 80 mg/0.8 mL Syringe 70 MG SUBCUT ×2 (07:29→20:47)
[2020-01-26] MEDS: pantoprazole DR 40 mg Tablet PO (07:30)
[2020-01-26] MEDS: guaiFENesin 100 mg/5 mL UDC 10 mL 200 MG PO (07:32)
[2020-01-26] MEDS: levothyroxine 150 mcg Tablet 75 MCG PO (07:33)
[2020-01-26] MEDS: calcium carbonate 500 mg Chew Tablet PO (07:33)
[2020-01-26] MEDS: lactobacillus 1 Tablet 1 TAB PO ×4 (07:44→20:26)
--- NOTE | 2020-01-26 07:51 | PM.PN ---
Subjective Subjective: Interval history: Patient awake in bed at time of exam today. He reported feeling that his breathing felt easier today than it had previously. Reported that he continues to feel tired and fatigued but slightly improved. Overnight had to be increased to 5L by NC while sleeping, however then decreased back to 3L by NC. Medications: Reviewed: Yes Vitals/I&O/Wt Last Vital Signs Temp 97.8 F 01/26/20 04:30 Pulse 94 01/26/20 07:02 Resp 15 01/26/20 07:02 BP 120/70 01/26/20 07:02 Pulse Ox 94 01/26/20 07:02 01/25/20 01/26/20 01/26/20 22:59 06:59 14:59 Intake Total 1300 / 1950 300 / 2250 Output Total 1052 / 1502 425 / 1927 Balance 248 / 448 -125 / 323 Physical Exam Const: COMMON NORMALS: oriented x3 and alert GENERAL APPEARANCE: cooperative ORIENTATION/CONSCIOUSNESS: Yes awake, Yes oriented to person, Yes oriented to place and Yes oriented to time HENMT: COMMON NORMALS: normocephalic and head/scalp atraumatic HEAD & SCALP: normocephalic and atraumatic Eye: COMMON NORMALS: PERRL PUPIL: Yes PERRL Neck/C-Spine: COMMON NORMALS: supple GENERAL: Yes normal visual inspection Resp: COMMON NORMALS: normal respiratory effort EFFORT & INSPECTION: Yes symmetric chest movement AUSCULTATION: no rhonchi and no wheezes OTHER: Diminished breath sounds bilaterally, faint crackles R lung base Cardio: COMMON NORMALS: regular rate, regular rhythm and no murmurs RATE: regular rate RHYTHM: regular rhythm GI: COMMON NORMALS: soft to palpation and non-tender INSPECTION: No abdominal distension AUSCULTATION: Yes normoactive bowel sounds PALPATION: Yes soft : COMMON NORMALS: Yes no CVA tenderness BLADDER/KIDNEY EXAM: Yes no CVA tenderness Back/Pelvis: COMMON NORMALS: no CVA tenderness Extremity: COMMON NORMALS: no clubbing, cyanosis or edema and no calf tenderness Neuro: COMMON NORMALS: oriented x3, CN's II-XII intact bilaterally and moves all extremities SENSORIUM/ORIENTATION: Yes alert, Yes oriented to person, Yes oriented to place and Yes oriented to time SPEECH: speech normal Psych: COMMON NORMALS: mental status grossly normal and cooperative Skin: COMMON NORMALS: no rashes or lesions noted GENERAL SKIN EXAM: no rashes or lesions noted Data : 01/26/20 04:55 01/26/20 04:55 Micro: Microbiology 01/20/20 07:59 Blood Culture - Final Blood NO GROWTH AFTER 5 DAYS 01/20/20 07:58 Blood Culture - Final Blood NO GROWTH AFTER 5 DAYS A&P Assessment and plan (1) COVID-19: Isolation precautions Required 5L NC overnight with 3L NC on this morning. Wean as tolerated Inflammatory markers starting to trend down today Repeat CXR reviewed, central clearing with continued peripheral infiltrate Continue on treatment dose Lovenox q12h Completed course of plaquenil Ipratropium-albuterol continued Status: Acute (2) Acute respiratory failure with hypoxemia: Due to COVID-19, plan as above Status: Acute (3) Chest pain: Secondary to viral pneumonia. Pain resolved Status: Acute Qualifiers: Chest pain type: precordial pain Qualified Code(s): R07.2 - Precordial pain (4) Hypothyroidism: Continue home levothyroxine 75mcg daily Status: Acute (5) Dyslipidemia: Status: Acute Additional A&P Information R lower lobe pneumonia:Previously on Cefepime completed 5d. Transitioned to levaquin due to increase LFTs believed to be from cefepime. Continue Levaquin at this time HLD: hold statin due to increase in AST/ALT. 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
--- NOTE | 2020-01-26 10:25 | PC.NURSE ---
LIANNE STARTED THE SHIFT A LITTLE NEGATIVE AND GRUMPY BUT AGREED TO PUSHING HIMSELF TODAY, DEEP BREATHING MORE , IN HOPES OF TOLERATING MORE ACTIVITY AND GETTING CLOSER TO GOING HOME. HE ATE VERY LITTLE OF HIS EGGS AND 3/4 OF A PIECE OF TAY ONLY. COKE FOR HIS CAFFEINE AND COFFEE SOUNDS BAD TO HIM AT THIS TIME. BLOOD PRESSURES HAVE BEEN OVERALL SOFTER BUT HE SEEMS TO BE TURNING THE CORNER ON HIS SATS. BATH TIME HE WORE 5 LITERS DURING THE MOST VIGOROUS PART OF THE ACTIVITY I DID NOT HAVE A PULSE OX ON HIM. BY THE TIME HE GOT TO THE CHAIR AND BACK ON 3 LITERS HE WAS SATING 95 TO 96 AND REMAINED IN THE MID 90'S AFTER LAYING IN BED AND CONVERSING SO HE WAS TURNED TO 2 LITERS. BLOOD PRESSURE CUFF SMALL ADULT WAS PLACED AND PULSE OX PROB WAS FRESHENED WHEN WE NOTED A SAT IN 70'S BEFORE HIS BATH AND FELT IT WAS GETTING SOGGY. IT IS MORE HOPE HE WILL GAIN MORE APPETITE IN THE NEXT DAY AND ADD TO HIS STRENGTH AND CONTINUE TO PUSH HIMSELF TO DEEP BREATH AND MOBILIZE HIS ALVEOLI.
--- NOTE | 2020-01-26 11:52 | PC.NURSE ---
PATIENT REMOVED HIS OXYGEN TO EAT AND SUCCESSFULLY MAINTAINED HIS SATS 89 TO 92 ON ROOM AIR.
--- NOTE | 2020-01-26 14:45 | PC.NURSE ---
some lightheadedness reported while up in the room on room air. will allow to rest and then walk in the [place] with the oxygen on.
[2020-01-26] MEDS: trazodone 100 mg Tablet PO (20:47)
[2020-01-27] VITALS (23 sets, daily range): BP systolic 87–122; BP diastolic 42–75; PULSE 56–84; RESP 7–29; TEMP 36–36.9; O2SAT 87–95
[2020-01-27 04:58] LABS: Basophils % 0.5 %; Eosinophils # 0.1 10^3/uL (0.0-0.8); Eosinophils % 0.7 %; Hemoglobin 11.9 g/dL (11.7-16.6); Lymphocytes # 1.1 10^3/uL (0.8-4.8); Lymphocytes % 14.6 %; Mean Corpuscular HGB Conc 32.2 g/dL (30.0-36.0); Mean Corpuscular Hemoglobin 27.4 pg (28.0-34.0); Mean Corpuscular Volume 85.1 fL (80-94); Mean Platelet Volume 11.1 fL (7.4-10.4); Monocytes # 0.7 10^3/uL (0.2-0.9); Monocytes % 9.5 %; Neutrophils # 5.4 10^3/uL (1.8-7.7); Neutrophils % 70.1 %; Nucleated Red Blood Cells % 0 %; Platelet Count 256 10^3/cmm (130-400); Red Blood Count 4.35 10^6/uL (4.1-5.3); Red Cell Distribution Width 12.8 % (12.1-15.1); White Blood Count 7.7 10^3/uL (4.0-10.0)
[2020-01-27] MEDS: levoFLOXacin 750 mg Tablet PO (05:07)
[2020-01-27 05:14] LABS: Alanine Aminotransferase 72 U/L (0-41); Alkaline Phosphatase 147 IU/L (40-130); Anion Gap 14.9 (5-19); Aspartate Amino Transferase 53 U/L (0-40); Blood Urea Nitrogen 10 mg/dL (8-23); Calcium 9.1 mg/dL (8.5-10.5); Carbon Dioxide 23 mmol/L (22-29); Chloride 103 mmol/L (98-107); Globulin 4.1 g/dL (1.3-4.6); Glucose 110 mg/dL (65-115); Osmolality Calculated 281 mOsm/kg (285-295); Potassium 3.9 mmol/L (3.5-5.1); Sodium 137 mmol/L (136-145); Total Bilirubin 0.5 mg/dL (0.15-1.2); Total Protein 7.1 g/dL (6.6-8.7)
[2020-01-27 05:34] LABS: D Dimer 2.17 ug/mIFEU (0-0.59)
[2020-01-27 05:44] LABS: Ferritin 429 ng/mL (30-400); Lactate Dehydrogenase 248 U/L (135-225)
[2020-01-27] MEDS: sucralfate 1 gm/10 mL Oral Liq UDC PO ×4 (07:36→19:28)
[2020-01-27] MEDS: lactobacillus 1 Tablet 1 TAB PO ×4 (07:37→19:27)
[2020-01-27] MEDS: enoxaparin 80 mg/0.8 mL Syringe 70 MG SUBCUT ×2 (07:37→19:27)
[2020-01-27] MEDS: pantoprazole DR 40 mg Tablet PO (07:38)
[2020-01-27] MEDS: levothyroxine 150 mcg Tablet 75 MCG PO (07:38)
--- NOTE | 2020-01-27 10:37 | PM.PN ---
Subjective Subjective: Interval history: Patient awake in bed at time of exam. He reported feeling weak. He stated that he has some R sided rib pain with coughing. Medications: Reviewed: Yes Vitals/I&O/Wt Last Vital Signs Temp 96.8 F L 01/27/20 08:00 Pulse 67 01/27/20 10:00 Resp 17 01/27/20 10:00 BP 96/56 01/27/20 10:00 Pulse Ox 90 01/27/20 10:00 01/26/20 01/27/20 01/27/20 22:59 06:59 14:59 Intake Total 600 / 1500 Output Total 300 / 1225 750 / 1975 200 / 200 Balance 300 / 275 -750 / -475 -200 / -200 Physical Exam Const: COMMON NORMALS: oriented x3 and alert GENERAL APPEARANCE: cooperative ORIENTATION/CONSCIOUSNESS: Yes awake, Yes oriented to person, Yes oriented to place and Yes oriented to time HENMT: COMMON NORMALS: normocephalic and head/scalp atraumatic HEAD & SCALP: normocephalic and atraumatic Eye: COMMON NORMALS: PERRL PUPIL: Yes PERRL Neck/C-Spine: COMMON NORMALS: supple GENERAL: Yes normal visual inspection Chest: OTHER: Tenderness in the intercostal space in the anterior ribs beween rib 5-6 Resp: COMMON NORMALS: normal respiratory effort EFFORT & INSPECTION: Yes symmetric chest movement AUSCULTATION: no rhonchi and no wheezes OTHER: Improved breath sounds with very faint crackles bilaterally Cardio: COMMON NORMALS: regular rate, regular rhythm and no murmurs RATE: regular rate RHYTHM: regular rhythm GI: COMMON NORMALS: soft to palpation and non-tender PALPATION: Yes soft Extremity: COMMON NORMALS: no clubbing, cyanosis or edema and no calf tenderness Neuro: COMMON NORMALS: oriented x3, CN's II-XII intact bilaterally and moves all extremities SENSORIUM/ORIENTATION: Yes alert, Yes oriented to person, Yes oriented to place and Yes oriented to time SPEECH: speech normal Psych: COMMON NORMALS: mental status grossly normal and cooperative Data : 01/27/20 04:50 01/27/20 04:50 A&P Assessment and plan (1) COVID-19: Isolation precautions Continue to wean oxygen as tolerated CUrrently on 1L by NC, required 2L overnight. Wean to RA today and increase ambulation with hope for potential discharge in 1-2 days Continue on treatment dose Lovenox q12h, transition to Eliquis at time of discharge Completed course of plaquenil Ipratropium-albuterol continued Status: Acute (2) Acute respiratory failure with hypoxemia: Due to COVID-19, plan as above Status: Acute (3) Chest pain: Secondary to viral pneumonia. Pain resolved Status: Acute Qualifiers: Chest pain type: precordial pain Qualified Code(s): R07.2 - Precordial pain (4) Hypothyroidism: levothyroxine 75mcg daily Status: Acute (5) Dyslipidemia: Status: Acute Additional A&P Information R lower lobe pneumonia: Continue levaquin 750mg PO daily HLD: hold statin due to increase in AST/ALT, also believe cefepime contributing to this. Improved today Hypotension: resolved GERD: changed to protonix Constipation: Resolved DVT ppx: Lovenox treatment dose Diet: Regular diet Code status: Full code Attestations Medical Necessity Statement*: Patient requires further hospitalization due to hypoxemia secondary to viral COVID-19 pneumonia Coding Level of Care Code Acute Equip Tech for [facility] Fwd Diagnoses COVID-19 U07.1 Acute respiratory failure with hypoxemia J96.01 Chest pain R07.2 Chest pain type: precordial pain Hypothyroidism E03.9 Dyslipidemia E78.5
--- NOTE | 2020-01-27 10:42 | PC.NURSE ---
ambulation patient ambulated in room, on room air. Nurse was stand by assist, patient was balanced, and denied any shortness of breath. He did state his legs were tired. Patient ambulated to the bathroom door and back to bed 6 times and a break in the middle. Total of approximately 360ft. Patient was 88% on room air at end of exercise. Denies shortness of breath and does not appear to have labored breathing. Patient is now resting in bed.
--- NOTE | 2020-01-27 13:53 | PC.SOCIAL ---
Dr Macedo is agreeable to remind patient verbally of right to appeal DC. If patient wants to exercise this option at DC, Dr Macedo will notify Case Management for further instructions.
[2020-01-27] MEDS: trazodone 100 mg Tablet PO (19:29)
[2020-01-27] MEDS: acetaminophen 325 mg Tablet 650 MG PO (19:29)
--- NOTE | 2020-01-27 19:50 | PC.NURSE ---
Patient much more cheerful tonight. pulse ox fell off his finger/ slipped off easily so it was replaced. He is watching racing right now and said around 9 he will take his trazodone and brush his teeth. A short walk is also planned.
--- NOTE | 2020-01-27 23:53 | NPU.GN ---
Intensive Care Unit Group Topic: General Mood of GroupPATIENT WAS UP TO BRUSH HIS TEETH AT 2130. HE REFUSED TO WEAR HIS OXYGEN WHILE UP. ON RETURN TO BED AND MONITORING HIS SATS WERE 87 WITH A GOOD RECOVERY ON HIS 1.5 LITERS OF OXYGEN. ONCE ASLEEP HIS SATS STAYED 87 TO 89 AND RARELY HIT 90 AND WENT LOW 86. HIS OXYGEN WAS INCREASED BY A HALF LITER AND HE OBSERVED FOR 10 MIN, HIS SATS GOT TO 90 BUT NO HIGHER. LEFT PATIENT ON 2.5 LITERS FOR HIS SLEEPING TIME. CURRENT SATS RUNNING 90 TO 92%
[2020-01-28] VITALS (28 sets, daily range): BP systolic 86–127; BP diastolic 46–70; PULSE 53–76; RESP 11–27; TEMP 36.6–37.1; O2SAT 86–94
[2020-01-28] MEDS: acetaminophen 325 mg Tablet 650 MG PO ×2 (03:40→21:35)
--- NOTE | 2020-01-28 04:05 | PC.NURSE ---
PATIENT AWOKE WITH A HOT SWEATS AND HIS BED DAMP. HE WAS GIVEN A BATH AND NEW CLOTHES AND BEDDING. HE ATTEMPTED TO PUSH HIMSELF WITHOUT OXYGEN AGAIN AND ONCE BACK TO SITTING AT BEDSIDE HIS SATS WERE 84 ON ROOM AIR AND THEN slowly went up to 90 91 on 2.5 liters. he was given some tylenol to help with aches and pains and help him ease back to sleep. No labs appear to be ordered for this am.
[2020-01-28] MEDS: levoFLOXacin 750 mg Tablet PO (05:29)
[2020-01-28] MEDS: sucralfate 1 gm/10 mL Oral Liq UDC PO ×2 (05:29→11:18)
[2020-01-28] MEDS: lactobacillus 1 Tablet 1 TAB PO ×4 (08:00→21:35)
[2020-01-28] MEDS: levothyroxine 150 mcg Tablet 75 MCG PO (08:00)
[2020-01-28] MEDS: enoxaparin 80 mg/0.8 mL Syringe 70 MG SUBCUT (08:00)
[2020-01-28] MEDS: pantoprazole DR 40 mg Tablet PO (08:01)
--- NOTE | 2020-01-28 10:15 | PC.NURSE ---
Ambulation Patient ambulated to and from bathroom door three times while wearing 2l per nasal cannula. Patient tolerated well and o2 sats remained 89-90%. Instructed patient on importance of wearing oxygen while at home and with increased activities. He seemed reluctant saying that he feels stronger and doesn't feel like he needs it, and that once his tired he will just rest. Nurse instructed that resting when he is feeling tired is appropriate, but that it will be very important to wear his oxygen until it is no longer required. Patient verbalizes understanding to this.
--- NOTE | 2020-01-28 14:31 | PM.PN ---
Subjective Subjective: Interval history: Patient awake in bed at time of exam today. Reported feeling better each day. Has stiffness in his legs, however no chest pain. Reported that he can take deep breaths without pain and improved cough. Medications: Reviewed: Yes Vitals/I&O/Wt Last Vital Signs Temp 98.2 F 01/28/20 14:00 Pulse 69 01/28/20 14:00 Resp 18 01/28/20 14:00 BP 110/58 01/28/20 14:00 Pulse Ox 91 01/28/20 14:00 01/27/20 01/28/20 01/28/20 22:59 06:59 14:59 Intake Total 730 / 1210 875 / 2085 240 / 240 Output Total 650 / 1275 1035 / 2310 400 / 400 Balance 80 / -65 -160 / -225 -160 / -160 Physical Exam Const: COMMON NORMALS: oriented x3 and alert GENERAL APPEARANCE: cooperative ORIENTATION/CONSCIOUSNESS: Yes awake, Yes oriented to person, Yes oriented to place and Yes oriented to time HENMT: COMMON NORMALS: normocephalic and head/scalp atraumatic HEAD & SCALP: normocephalic and atraumatic Eye: COMMON NORMALS: PERRL PUPIL: Yes PERRL Neck/C-Spine: COMMON NORMALS: supple GENERAL: Yes normal visual inspection Resp: COMMON NORMALS: normal respiratory effort EFFORT & INSPECTION: Yes symmetric chest movement AUSCULTATION: no rhonchi and no wheezes OTHER: faint crackles in the periphery of the lungs Cardio: COMMON NORMALS: regular rate, regular rhythm and no murmurs RATE: regular rate RHYTHM: regular rhythm GI: COMMON NORMALS: soft to palpation and non-tender INSPECTION: No abdominal distension AUSCULTATION: Yes normoactive bowel sounds PALPATION: Yes soft Extremity: COMMON NORMALS: no clubbing, cyanosis or edema and no calf tenderness Neuro: COMMON NORMALS: oriented x3, CN's II-XII intact bilaterally and moves all extremities SENSORIUM/ORIENTATION: Yes alert, Yes oriented to person, Yes oriented to place and Yes oriented to time SPEECH: speech normal Psych: COMMON NORMALS: mental status grossly normal and cooperative Skin: COMMON NORMALS: no rashes or lesions noted GENERAL SKIN EXAM: no rashes or lesions noted Data : 01/27/20 04:50 01/27/20 04:50 A&P Assessment and plan (1) COVID-19: Isolation precautions Home oxygen qualification with requirement of 2L at rest and 3L with activity. Plan for discharge to home tomorrow if continues to improve. Treatment dose Lovenox q12h, transition to Eliquis today Completed course of plaquenil Ipratropium-albuterol continued Status: Acute (2) Acute respiratory failure with hypoxemia: Due to COVID-19, plan as above Status: Acute (3) Chest pain: Secondary to viral pneumonia. Pain resolved Status: Acute Qualifiers: Chest pain type: precordial pain Qualified Code(s): R07.2 - Precordial pain (4) Hypothyroidism: levothyroxine 75mcg daily Status: Acute (5) Dyslipidemia: Status: Acute Additional A&P Information R lower lobe pneumonia: Continue levaquin 750mg PO daily. 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
[2020-01-28] MEDS: apixaban 5 mg Tablet PO (17:58)
[2020-01-29] VITALS (11 sets, daily range): BP systolic 92–120; BP diastolic 48–74; PULSE 58–70; RESP 15–24; TEMP 36.7–37.6; O2SAT 90–95
[2020-01-29] MEDS: levoFLOXacin 750 mg Tablet PO (06:07)
--- NOTE | 2020-01-29 06:16 | PC.NURSE ---
SHIFT SUMMARY PT HAS REMAINED ALERT AND ORIENTATED. PT HAS BEEN AFEBRILE. PT COMPLAINED OF NIGHT SWEATS, TEMP WAS CHECKED AND PT WAS AFEBRILE. PT HAS HAD ADEQUATE URINE OUTPUT. PT HAS NOT HAD ANY SHORTNESS OF BREATH EVENTS. PT HAS NOT HAD ANY SEVERE HYPOTENSION EVENTS.
[2020-01-29] MEDS: pantoprazole DR 40 mg Tablet PO (07:18)
[2020-01-29] MEDS: lactobacillus 1 Tablet 1 TAB PO (07:18)
[2020-01-29] MEDS: apixaban 5 mg Tablet PO (07:18)
[2020-01-29] MEDS: levothyroxine 150 mcg Tablet 75 MCG PO (07:19)
--- NOTE | 2020-01-29 07:48 | PC.SOCIAL ---
Follow up IM. Patient aware of right to appeal. Pt is ready to go home when physician approves.
--- NOTE | 2020-01-29 08:37 | P.DS_ITS ---
Discharge Providers Date of Admission: 01/18/20 22:46 Date of Discharge: January 29, 2020 Attending Provider at Admission: Dr. Africa MD Attending Provider at Discharge: Lulu Macedo DO Diagnoses at Discharge Discharge Diagnosis (1) COVID-19: Status: Acute (2) Acute respiratory failure with hypoxemia: Status: Acute (3) Chest pain: Status: Acute Qualifiers: Chest pain type: precordial pain Qualified Code(s): R07.2 - Precordial pain (4) Hypothyroidism: Status: Acute Problem details: Levothyroxine 75mcg daily (5) Dyslipidemia: Status: Acute Problem details: Simvastatin 20mg daily Reason for Visit Reason for Visit: Reason For Visit: SOB, Positive COVID Hospital Course Hospital Course: Chris Elizabeth is a 74 year old male who was presented to the emergency department for shortness of breath. He has presented to the ED initially one day prior to admission for chest pain and due to exposure was tested for COVID-19. He was exposed to his nephew, who had Covid 19 in [place] around 2-1/2 weeks prior to admission. 3 to 4 days after exposure he developed vague GI symptoms that included abdominal pain, night sweats, anorexia, subjective fever, and nonproductive cough. Shortness of breath occurred approx 5-6 days prior to admission with associated chest discomfort and headache. He was having significant myalgias, which are improved. Patient was admitted to the hospital due to concern for hypoxemia and COVID-19 viral pneumonia. He was started on Plaquenil, after risks and potential benefits were discussed with the patient. He was continued on supplemental oxygen. He then developed hypotension and requires levophed due to concern for sepsis and septic shock. He had repeat imaging of his chest and blood cultures ordered. His CXR showed some consolidation in the R lower chest and he was started on Cefepime due to concern for bacterial pneumonia in combination with COVID-19 viral pneumonia. Labs were monitored closely and he contined to have elevation in inflammatory markers. His d-dimer continued to increase, with a peak of 3.07. Due to worsening hypoxemia patient was started on treatment dose anticoagulation, lovenox. This was after a discussion of risks and benefits with the patient. Patient agreed to proceed with full dose anticoagulation and understood the r isks and benefits, verbalizing understanding. He continued to have oxygen requirements with a peak oxygen requirement of 5L by HI. This was gradually weaned as tolerated, however could not be weaned completely. Strength gradually improved and patient was ambulated, he did not have any chest pain, no feeling of shortness of breath and no dizziness or lightheadedness. He was transitioned off of Cefepime to Levaquin after increase in LFTs. The increase in AST and ALT was believed to be multifactorial, related to viral illness, cefepime and potentially plaquenil. This did improve. Treatment dose lovenox was continued and ultimately transitioned to Eliquis 5mg BID prior to discharge. Episodes of desaturation improved with activity and at rest, however ultimately it was determined that patient required home oxygen after home oxygen evaluation was performed. He qualified for 2L of oxygen at rest and 3L with activity. On date of discharge patient reported that he was feeling well with improved symptoms. He stated that he felt ready for discharge with no concerns. Discussed with patient the need for continued isolation and quarantine, he verbalized understanding and agreed with plan. Patient's son drove from [place] and will be staying with him after discharge, discussed continued hand hygiene, cough ettiquete and disinfection of surfaces. Discussed with patient the ability to donate plasma with the local blood bank and discussed information on this process if he wished to do so. Patient completed course of antibiotics, therefore no further antibiotic coverage was continued at discharge Patient discharged to home with home health and home oxygen. Called and discussed with Dr. Diaz on discharge to make her aware of hospitalization and current status. Physical Exam Const: COMMON NORMALS: patient oriented x3 and alert GENERAL APPEARANCE: cooperative ORIENTATION/CONSCIOUSNESS: Yes awake, Yes oriented to person, Yes oriented to place and Yes oriented to time HENMT: COMMON NORMALS: normocephalic and atraumatic HEAD & SCALP: normo cephalic and atraumatic Eye: COMMON NORMALS: Equal, round and reactive pupils present PUPIL: Yes Equal, round and reactive pupils present Neck/C-Spine: COMMON NORMALS: supple GENERAL: Yes normal visual inspection Resp: COMMON NORMALS: normal respiratory effort EFFORT & INSPECTION: Yes symmetric chest movement AUSCULTATION: no rhonchi and no wheezes OTHER: Improved breath sounds bilaterally Cardio: COMMON NORMALS: regular rate, regular rhythm and No murmurs present (Cardio) RATE: regular rate RHYTHM: regular rhythm GI: COMMON NORMALS: Soft to palpation and non-tender INSPECTION: No abdominal distension AUSCULTATION: Yes normoactive bowel sounds PALPATION: Yes Soft to palpation Extremity: COMMON NORMALS: no clubbing, cyanosis or edema and no calf tenderness Neuro: COMMON NORMALS: patient oriented x3, CN's II-XII intact bilaterally and moves all extremities SENSORIUM/ORIENTATION: Yes alert, Yes oriented to person, Yes oriented to place and Yes oriented to time SPEECH: speech normal Psych: COMMON NORMALS: mental status grossly normal and cooperative Skin: COMMON NORMALS: no rashes or lesions noted GENERAL SKIN EXAM: no rashes or lesions noted Discharge Data Data Completed and Pending: Completed Studies During Hospitalization Category Date Time Status XR chest 1V butch ble [id number] Routine Exams 01/20/20 07:25 Completed XR chest 1V butch ble [id number] Routine Exams 01/23/20 10:22 Completed XR chest 1V butch ble [id number] Routine Exams 01/26/20 06:00 Completed XR chest 1V butch ble [id number] Urgent Exams 01/18/20 21:16 Completed Imaging^: CXR: Radiologist's impression: Last CXR from 01/26/20 FINDINGS: Peripheral edema both lung pollard consistent with pneumonia. The heart is not enlarged. The hilum and apices normal. XR/XR chest 1V portable [id number] IMPRESSION: Persistent peripheral pneumonias. Vitals: Last Vital Signs Temp 98.0 F 01/29/20 08:00 Pulse 68 01/29/20 08:00 Resp 15 01/29/20 08:00 BP 118/67 01/29/20 08:00 Pulse Ox 92 01/29/20 08:00 Discharge Plan Discharge Patient Disposition: Home Health Service Condition: Stable Prescriptions: New Eliquis 5 mg Tablet 5 mg PO BID 30 Days Qty: 60 RF: 0 Combivent Respimat 20-100 mcg/actuation Mist 1 puff inhalation QID.RESPIRATORY PRN (Reason: Shortness Of Breath) 30 Days Qty: 1 RF: 0 Continued levothyroxine [Synthroid] 75 mcg tablet 75 mcg PO DAILY RF: 0 simvastatin 20 mg tablet 20 mg PO DAILY RF: 0 Nexium 40 mg PO DAILY RF: 0 Discontinued aspirin 1 tab PO DAILY RF: 0 levofloxacin [Levaquin] 750 mg tablet 750 mg PO DAILY 7 Days RF: 0 Discharge Orders: Discharge Order (Routine); Ordered 01/29/20 Ordered By: Lulu Macedo Other Ambulatory Orders: DME: Oxygen (Order) Location: None Selected Ordered By: Lulu Macedo Referrals: [facility] [Outside] [facility] [Outside] ([employer] has been chosen as your DME company. They will be setting up and supplying your oxygen.) Vanessa Diaz MD [Physician] - 1-3 days (Appointment 01/30/2020 1:20 PM via Televisit. Clinic Staff will call your Son to help arrange the visit virtually so you will not need to attend in person. It is recommended that you establish care with Dr Diaz for primary care needs. If you have any questions please call Silke at [phone] or you can call the clinic at number listed.) Discharge Diet: Advance as tolerated and Regular Discharge Activity: Increase activity as tolerated, Oxygen as instructed and Return to work/school after cleared by PCP/Specialist Patient Instructions: Ipratropium/Albuterol (By breathing), Apixaban (By mouth), Viral Pneumonia (DC) Activity Restrictions/Additional Instructions: Continue with isolation and quarantine until instructed further by your Primary Care Provider. Discharging home with oxygen, 2L with rest and 3L with activity. This will be weaned by your primary care provider as able. Dr. Diaz, family practice physician in [place], will see you via telehealth visit on at 1:20pm. Home health is ordered at this time for discharge, [facility] will see you on Monday. It will be important to call in to the tele visit with Dr. Diaz on to ensure that this service will be provided in your home on Monday. If you develop any increase in shortness of breath, dizziness or lightheadedness, chest pain or any other acute concern or symptom please call 911 or present to the ED. Patient to instruct of COVID-19 positive status. Discussed donation of plasma to help with further treatment options for COVID-19 viral infection if you wish to do so. Contact information with [facility], [facility], is included in your discharge folder along with your printed test results. Handouts from [facility] also included in your discharge packet If you have any questions or concerns please call our hospitalist department at [phone] Discharge Attestations Time Spent in Discharge Care*: greater than 30 min Specific Discharge Activities: Specific discharge activities: educating patient, educating and/or supporting family/caregiver, discussing with pcp/other providers, discussing with block and case maker/social workers/dc planners, documenting/other paperwork and evaluating patient/reviewing data Status at Discharge: Cognitive status at discharge: cognitively intact , Behavioral status at discharge: cooperative , Quality Metrics Clinical Quality Measures During this hospital stay, did patient experience: None Coding Level of Care Code Acute Warranty Coordinator for g Fwd Exam Comprehensive Diagnoses COVID-19 U07.1 Acute respiratory failure with hypoxemia J96.01 Chest pain R07.2 Chest pain type: precordial pain Hypothyroidism E03.9 Dyslipidemia E78.5
--- NOTE | 2020-01-29 09:59 | PC.SOCIAL ---
F/ U IM Son was updated today on right to appeal but as previously noted by patient he will not want to explore this option.
--- NOTE | 2020-01-29 10:54 | PC.NURSE ---
Discharge instructions This nurse instructed patient on new medications including Eliquis and Combivent inhaler dose and frequency. Also reviewed follow up appointment via telehealth with Dr. Diaz. Patient verbalized understanding. Prescription of Eliquis was brought from [facility]. Combivent inhaler sent with patient also. IV discontinued at this time, cath intact and site is asymptomatic. Patient son is to come to take patient home.
== END 2020-01-29 12:00 | disposition home health service (06) | DRG 177 ==
LOC: ER 20:59 → ICU 01-19 12:13
PROVIDERS: Emergency Medicine; Internal Medicine; Admitting Provider Internal Medicine; Visit Provider Family Medicine
DX: U07.1 COVID-19 (principal); J12.89 Other viral pneumonia; J96.01 Acute respiratory failure with hypoxia; Z79.82 Long term (current) use of aspirin; E03.9 Hypothyroidism, unspecified; E78.5 Hyperlipidemia, unspecified; I10 Essential (primary) hypertension; Z87.891 Personal history of nicotine dependence; I95.9 Hypotension, unspecified; K21.9 Gastro-esophageal reflux disease without esophagitis; K59.00 Constipation, unspecified
CPT/HCPCS: 12345; 36415; 71045; 80048; 80053; 81001; 81003; 82728; 82803; 83605; 83615; 83735; 83880; 84145; 84484; 85025; 85378; 86140; 87040; 93005; 96372; 96375; 99283; J0692; J1650; J2270; J2405; J3535; J7030; J7040

== ENCOUNTER → 2021-11-04 11:16 | Outpatient (BNVA) | payer MEDICARE, SELFPAY | PROVIDERS: PCP Family Medicine; Referring Provider Family Medicine; Visit Provider Specialist | DX: G56.02 Carpal tunnel syndrome, left upper limb (principal) | CPT/HCPCS: 95908 ==

== ENCOUNTER → 2021-12-02 16:28 | Outpatient (BNVA) | payer MEDICARE, SELFPAY | PROVIDERS: PCP Family Medicine; Visit Provider Family Medicine | DX: G56.02 Carpal tunnel syndrome, left upper limb (principal); E03.9 Hypothyroidism, unspecified; E78.5 Hyperlipidemia, unspecified | CPT/HCPCS: 80053; 80061; 84443; 85025 ==

== ENCOUNTER → 2022-07-20 12:21 | Outpatient (BNVA) | payer MEDICARE, SELFPAY | PROVIDERS: PCP Family Medicine; Visit Provider Family Medicine | DX: G56.02 Carpal tunnel syndrome, left upper limb (principal); E03.9 Hypothyroidism, unspecified; E78.5 Hyperlipidemia, unspecified; E07.9 Disorder of thyroid, unspecified | CPT/HCPCS: 80053; 80061; 84443; 85025 ==

== ENCOUNTER → 2023-02-21 11:44 | Outpatient (BNVA) | payer MEDICARE, SELFPAY | PROVIDERS: PCP Family Medicine; Visit Provider Family Medicine | DX: E78.5 Hyperlipidemia, unspecified (principal); E03.9 Hypothyroidism, unspecified; Z12.5 Encounter for screening for malignant neoplasm of prostate | CPT/HCPCS: 80053; 80061; 84443; 85025; G0103 ==

== ENCOUNTER → 2023-12-05 11:44 | Outpatient (BNVA) | payer MEDICARE, SELFPAY | PROVIDERS: PCP Family Medicine; Visit Provider Family Medicine | DX: E78.5 Hyperlipidemia, unspecified (principal); E03.9 Hypothyroidism, unspecified | CPT/HCPCS: 80053; 80061; 84443; 85025 ==

== ENCOUNTER → 2024-05-28 09:54 | Outpatient (BNVA) | payer MEDICARE, SELFPAY | PROVIDERS: PCP Family Medicine; Visit Provider Nurse Practitioner Family | DX: Z12.5 Encounter for screening for malignant neoplasm of prostate (principal); E78.5 Hyperlipidemia, unspecified | CPT/HCPCS: 80053; 80061; 84443; 85025; G0103 ==

== ENCOUNTER → 2024-10-14 14:04 | Outpatient (BNVA) | payer MEDICARE, SELFPAY | PROVIDERS: PCP Nurse Practitioner Family; Visit Provider Nurse Practitioner Family | DX: L81.4 Other melanin hyperpigmentation (principal); L57.8 Other skin changes due to chronic exposure to nonionizing radiation; Z08 Encounter for follow-up examination after completed treatment for malignant neoplasm; Z85.820 Personal history of malignant melanoma of skin; D48.5 Neoplasm of uncertain behavior of skin | CPT/HCPCS: 11102; 17000; 99203 ==

== ENCOUNTER → 2025-04-14 12:51 | Outpatient (BNVA) | payer MEDICARE, SELFPAY | PROVIDERS: PCP Nurse Practitioner Family; Visit Provider Nurse Practitioner Family | DX: L81.4 Other melanin hyperpigmentation (principal); L57.8 Other skin changes due to chronic exposure to nonionizing radiation; Z08 Encounter for follow-up examination after completed treatment for malignant neoplasm; Z85.820 Personal history of malignant melanoma of skin | CPT/HCPCS: 99213 ==